=== PATIENT | male | born 1965 | race Caucasian/White ===

== ENCOUNTER 2017-04-15 17:29 | Observation (INO) ==
--- NOTE | 2017-04-15 17:40 | Emergency Department Note ---
Disposition Clinical Impression: Benzodiazepine intoxication Altered mental status Qualifiers: Altered mental status type: disorientation Qualified Code(s): R41.0 - Disorientation, unspecified Disposition: Admitted As Inpatient Condition: Fair Time of Disposition: 21:15 Altered Mental Status HPI - General Chief Complaint: ED Altered Mental Status Stated Complaint: AMS Time Seen by Provider: 04/15/17 17:36 - History of Present Illness HPI Narrative: Patient is a 51-year-old male presents with altered mental status. Patient was found on the side of the road and someone called EMS. Patient was wake at the time EMS was called. Patient a poor historian and has slurred speech at this time. He is unable to answer questions appropriately. Patient's ckbhy-ai-axqe glucose was 99 prior to arrival to the ED. - Related Data Home Medications Medication Instructions Recorded Confirmed Diclofenac Sodium [Voltaren] 75 mg PO BID 04/15/17 Fluticasone/Vilanterol [Breo 1 each IH DAILY 04/15/17 Ellipta 100-25 Mcg INH] Previous Rx's Medication Instructions Recorded Amitriptyline [Elavil] 100 mg PO HS #14 tablet 04/07/16 Albuterol Sulfate [Albuterol 2 puff IH Q4HR PRN #1 hfa.aer.ad 05/16/16 Inhaler] Tiotropium [Spiriva] 18 mcg IH 0700 #30 capsule 05/16/16 Allergies Allergy/AdvReac Type Severity Reaction Status Date / Time No Known Allergies Allergy Verified 03/06/16 11:22 Limitations: ROS unobtainable due to patients medical condition Past Medical History - Past Medical History Medical history: Reports: COPD, other Surgical history: Reports: vascular surgery, other Psychiatric history: Reports: anxiety, PTSD - Social History Smoking Status: Current some day smoker Smokeless Tobacco Status: No Alcohol use: Reports: none Drug use: Reports: none Physical Exam - General Limitations: other (Slurred speech. Unable to decipher in patient's words.) General appearance: appears intoxicated, lethargic, cachectic - Head Head exam: other (Scars to left side of face with evidence of facial reconstruction.) - Eye Eye exam: Present: PERRL, EOMI - Neck Neck exam: Present: normal inspection, full ROM - Chest Chest inspection: Present: normal inspection, symmetric chest wall rise - Respiratory Respiratory exam: Present: wheezes (Expiratory wheezing to all lung sanchez) - Cardiovascular Cardiovascular exam: Present: regular rate, normal rhythm, other (Cannot appreciate heart sounds over loud wheezing) - Extremities Exam Extremities exam: Present: normal inspection, full ROM - Expanded Neurological Exam Patient oriented to: Present: person, place. Absent: time Cranial nerves: EOM function (II, III, IV, ): Normal, facial sensation (V): Normal, facial palsy (VII): Normal, gag reflex (IX): Normal, spinal accessory function (XI): Normal, tongue deviation (XII): Normal Motor strength - LUE: 5/5 Motor strength - RUE: 5/5 Motor strength - LLE: 5/5 Motor strength - RLE: 5/5 Sensory exam upper extremity: light touch: Normal Sensory exam lower extremity: light touch: Normal Coma Scale Eye Opening: Spontaneous Coma Scale Motor Response: Obeys Commands Coma Scale Verbal Response: Confused Coma Scale Total: 14 - Psychiatric Psychiatric exam: Present: other (Altered consciousness) - Skin Skin exam: Present: warm, dry, intact Course - Reevaluation(s) Reevaluation #1: Labs this patient has ingested amphetamines, benzodiazepines, marijuana. His opiate screen is negative. Patient appears to have drug intoxication. He is more alert at this time. Ever, he is unsafe to be discharged home. We will proceed with admission for this patient. Time: 20:00 Reevaluation #2: Spoken to the hospitalist Dr. Bonilla and he agrees to accept this patient. Time: 21:15 Vital Signs Temperature 98 F 04/15/17 17:32 Pulse Rate 87 04/15/17 17:32 Respiratory Rate 20 04/15/17 17:32 Blood Pressure 93/57 04/15/17 17:32 O2 Sat by Pulse Oximetry 96 04/15/17 17:32 Temperature 98 F 04/15/17 17:32 Pulse Rate 76 04/15/17 21:30 Respiratory Rate 18 04/15/17 21:30 Blood Pressure 110/72 04/15/17 21:30 O2 Sat by Pulse Oximetry 95 04/15/17 21:30 Oxygen Delivery Oxygen Delivery Room Air Altered Mental Status - MDM Narrative Medical decision making narrative: Patient presents with altered mental status. Per EMS, the patient was found on the roadside and was awake at the time EMS arrived. Patient has slurred speech that is nearly incomprehensible. EMS states that the patient had a phone number of unknown drug dealer in his wallet. There is cancer for drug intoxication. However, we will proceed with workup for other causes of altered mental status. - Lab Data Result diagrams: 04/15/17 20:09 04/15/17 20:09 Lab Results 04/15/17 04/15/17 04/15/17 Range/Units 18:28 18:28 20:09 WBC 6.4 (4.3-11.1) K/mcL RBC 5.23 (4.19-5.50) M/mcL Hgb 15.0 (12.9-16.9) g/dL Hct 45.9 (37.5-50.1) % MCV 87.8 (83.0-100.0) fL MCH 28.7 (28.0-33.3) pg MCHC 32.7 (31.6-35.5) g/dL RDW 14.6 H (11.5-14.5) % Plt Count 242 (140-400) K/mcL MPV 10.9 (9.4-12.4) fL Immature Gran % 0.0 (0-4) % Seg Neutrophils % 49.7 % Lymphocytes % 39.2 % Monocytes % 7.8 % Eosinophils % 1.7 % Basophils % 1.6 % Neutrophils # 3.2 (1.6-8.9) K/mcL Lymphocytes # 2.5 (0.6-4.6) K/mcL Monocytes # 0.5 (0.0-1.3) K/mcL Eosinophils # 0.1 (0.0-0.6) K/mcL Basophils # 0.1 (0.0-0.2) K/mcL Sodium (136-145) mEq/L Potassium (3.5-4.5) mEq/L Chloride (98-109) mEq/L Carbon Dioxide (19-29) mEq/L BUN (8-26) mg/dL Creatinine (0.72-1.25) mg/dL Est GFR ( Amer) (> 60) Est GFR (Non-Af Amer) (> 60) BUN/Creatinine Ratio (6-26) Glucose (70-99) mg/dL Calculated Osmolality (280-300) Calcium (8.6-10.8) mg/dL Total Bilirubin (0.2-1.2) mg/dL Direct Bilirubin (0.0-0.5) mg/dL Indirect Bilirubin (0.0-1.2) mg/dL AST (5-34) Units/L ALT (0-55) Units/L Alkaline Phosphatase (38-126) Units/L Serum Total Protein (6.0-8.3) g/dL Albumin (3.5-5.0) g/dL Globulin (2.4-3.5) g/dL Albumin/Globulin Ratio (1.1-2.2) Urine Color Yellow (Yellow) Urine Clarity Clear (Clear) Urine pH 7.0 (5.0-8.0) pH Units Ur Specific [place] 1.014 (1.010-1.025) Urine Protein Negative (Neg-Trace) mg/dL Urine Glucose (UA) Normal (Normal) mg/dL Urine Ketones Negative (Negative) mg/dL Urine Blood Negative (Negative) Urine Nitrite Negative (Negative) Urine Bilirubin Negative (Negative) Urine Urobilinogen Normal (Normal) mg/dL Ur Leukocyte Esterase Negative (Negative) Ur Culture Indicated? NO (NO) Salicylates (15-30) mg/dL Urine Opiates Screen Negative (Fsvmkq=785) ng/mL Acetaminophen (10-30) mcg/mL Ur Barbiturates Screen Negative (Uqyzwz=458) ng/mL Ur Phencyclidine Scrn Negative (Cutoff=25) ng/mL Ur Amphetamines Screen Positive H (Iwwluw=5392) ng/mL U Benzodiazepines Scrn Positive H (Ybebhh=950) ng/mL Urine Cocaine Screen Negative (Cutoff= 300) ng/mL U Marijuana (THC) Screen Positive H (Cutoff = 50) ng/mL Ethyl Alcohol (0-10) mg/dL 04/15/17 04/15/17 Range/Units 20:09 20:09 WBC (4.3-11.1) K/mcL RBC (4.19-5.50) M/mcL Hgb (12.9-16.9) g/dL Hct (37.5-50.1) % MCV (83.0-100.0) fL MCH (28.0-33.3) pg MCHC (31.6-35.5) g/dL RDW (11.5-14.5) % Plt Count (140-400) K/mcL MPV (9.4-12.4) fL Immature Gran % (0-4) % Seg Neutrophils % % Lymphocytes % % Monocytes % % Eosinophils % % Basophils % % Neutrophils # (1.6-8.9) K/mcL Lymphocytes # (0.6-4.6) K/mcL Monocytes # (0.0-1.3) K/mcL Eosinophils # (0.0-0.6) K/mcL Basophils # (0.0-0.2) K/mcL Sodium 142 (136-145) mEq/L Potassium 4.1 (3.5-4.5) mEq/L Chloride 109 (98-109) mEq/L Carbon Dioxide 25 (19-29) mEq/L BUN 8 (8-26) mg/dL Creatinine 0.83 (0.72-1.25) mg/dL Est GFR ( Amer) > 60 (> 60) Est GFR (Non-Af Amer) > 60 (> 60) BUN/Creatinine Ratio 10 (6-26) Glucose 81 (70-99) mg/dL Calculated Osmolality 291 (280-300) Calcium 9.7 (8.6-10.8) mg/dL Total Bilirubin 0.8 (0.2-1.2) mg/dL Direct Bilirubin 0.3 (0.0-0.5) mg/dL Indirect Bilirubin 0.5 (0.0-1.2) mg/dL AST 34 (5-34) Units/L ALT 28 (0-55) Units/L Alkaline Phosphatase 80 (38-126) Units/L Serum Total Protein 7.6 (6.0-8.3) g/dL Albumin 3.5 (3.5-5.0) g/dL Globulin 4.1 H (2.4-3.5) g/dL Albumin/Globulin Ratio 0.9 L (1.1-2.2) Urine Color (Yellow) Urine Clarity (Clear) Urine pH (5.0-8.0) pH Units Ur Specific [place] (1.010-1.025) Urine Protein (Neg-Trace) mg/dL Urine Glucose (UA) (Normal) mg/dL Urine Ketones (Negative) mg/dL Urine Blood (Negative) Urine Nitrite (Negative) Urine Bilirubin (Negative) Urine Urobilinogen (Normal) mg/dL Ur Leukocyte Esterase (Negative) Ur Culture Indicated? (NO) Salicylates < 5.0 L (15-30) mg/dL Urine Opiates Screen (Wxicff=137) ng/mL Acetaminophen < 1.0 L (10-30) mcg/mL Ur Barbiturates Screen (Mnpizr=214) ng/mL Ur Phencyclidine Scrn (Cutoff=25) ng/mL Ur Amphetamines Screen (Peepfa=7330) ng/mL U Benzodiazepines Scrn (Uyyhhq=253) ng/mL Urine Cocaine Screen (Cutoff= 300) ng/mL U Marijuana (THC) Screen (Cutoff = 50) ng/mL Ethyl Alcohol < 10 (0-10) mg/dL TPA Checklist - LKW: 3-4.5 hrs Add. Contraindications Patient/family understanding: The patient/family members have been counseled and understood the risk, benefit , and alternatives of treatment.
[2017-04-15] MEDS ORDERED: 0.9 % Sodium Chloride 1,000 ML IVC ONE ×2 (17:44→23:25)
--- NOTE | 2017-04-15 17:44 | Emergency Department Note ---
START Narrative - START START: I examined this patient and my medical decision-making was reviewed with the FISHING MANAGER/PA/Advanced Practice Nurse/Resident Physician. I agree with the documented findings, disposition and treatment plan as described except to the extent set forth below. Patient was found by the road confused and brought here by EMS and he is mumbling and give some answers and denies any drug use. He reportedly did have a phone number found in his wallet which was a number of a known drug dealer. The patient has been seen in the past that did review previous records. Testing including CT brain is pending. He denies any trauma. Does have some minimal neck pain with palpation. Unable to give an adequate history secondary to his altered consciousness. 1744 I did review the patient's EKG showed normal sinus rhythm with rate of 77 without acute ischemic change. There is no evidence of prolonged QT segment or any QRS widening. The patient just did return from head CT and this will be evaluated. 1818 I did discuss the the patient again. He is more alert but still slightly groggy. He does give me his name and the name of the person he lives with and he does know the year. We will observe her longer. He does now admit to smoking marijuana and taking 2 Klonopin. I did review the drug toxicology screen we did find a empty syringe underneath his scrotum when the [place] catheter was done to obtain the urine however his opiate screen is negative and he denies current use of opiates however has used heroin in the past 1957
[2017-04-15] MEDS ORDERED: Naloxone 0.4 MG/ML INJ IVP ONE (18:27)
[2017-04-15 18:40] LABS: Bilirubin,Urine Negative (Negative); Blood,Urine Negative (Negative); Clarity,Urine Clear (Clear); Color,Urine Yellow (Yellow); Glucose,Urine (UA) Normal (Normal); Ketones,Urine Negative (Negative); Leukocyte Esterase,Urine Negative (Negative); Nitrite,Urine Negative (Negative); Protein,Urine Negative (Neg-Trace); Specific Gravity,Urine 1.014 (1.010-1.025); Urobilinogen,Urine Normal (Normal)
[2017-04-15 18:45] LABS: Amphetamine Screen,Urine Positive ng/mL (Cutoff=1000); Barbiturate Screen,Urine Negative ng/mL (Cutoff=200); Benzodiazepines Screen,Urine Positive ng/mL (Cutoff=200); Cannabinoid Screen,Urine Positive ng/mL (Cutoff = 50); Cocaine Screen,Urine Negative ng/mL (Cutoff= 300); Opiate Screen,Urine Negative ng/mL (Cutoff=300); Phencyclidine Screen,Urine Negative ng/mL (Cutoff=25)
[2017-04-15 20:16] LABS: Basophils # 0.1 K/mcL (0.0-0.2); Basophils % 1.6 %; Eosinophils # 0.1 K/mcL (0.0-0.6); Eosinophils % 1.7 %; Hematocrit 45.9 % (37.5-50.1); Lymphocytes # 2.5 K/mcL (0.6-4.6); Lymphocytes % 39.2 %; Mean Corpuscular HGB Conc 32.7 g/dL (31.6-35.5); Mean Corpuscular Hemoglobin 28.7 pg (28.0-33.3); Mean Corpuscular Volume 87.8 fL (83.0-100.0); Mean Platelet Volume 10.9 fL (9.4-12.4); Monocytes # 0.5 K/mcL (0.0-1.3); Monocytes % 7.8 %; Neutrophils # 3.2 K/mcL (1.6-8.9); Platelet Count 242 K/mcL (140-400); Red Blood Count 5.23 M/mcL (4.19-5.50); Red Cell Distribution Width 14.6 % (11.5-14.5); Segmented Neutrophils % 49.7 %
[2017-04-15 20:29] LABS: Alanine Aminotransferase 28 Units/L (0-55); Albumin 3.5 g/dL (3.5-5.0); Albumin/Globulin Ratio 0.9 (1.1-2.2); Alkaline Phosphatase 80 Units/L (38-126); Aspartate Amino Transferase 34 Units/L (5-34); BUN/Creatinine Ratio 10 (6-26); Bilirubin,Direct 0.3 mg/dL (0.0-0.5); Bilirubin,Indirect 0.5 mg/dL (0.0-1.2); Bilirubin,Total 0.8 mg/dL (0.2-1.2); Blood Urea Nitrogen 8 mg/dL (8-26); Calcium 9.7 mg/dL (8.6-10.8); Carbon Dioxide 25 mEq/L (19-29); Chloride 109 mEq/L (98-109); Globulin 4.1 g/dL (2.4-3.5); Glucose 81 mg/dL (70-99); Osmolality,Calculated 291 (280-300); Potassium 4.1 mEq/L (3.5-4.5); Sodium 142 mEq/L (136-145); Total Protein 7.6 g/dL (6.0-8.3); eGFR For African Americans > 60 (> 60); eGFR For Non-African Americans > 60 (> 60)
[2017-04-15 20:30] LABS: Acetaminophen < 1.0 mcg/mL (10-30); Ethanol < 10 mg/dL (0-10); Salicylate < 5.0 mg/dL (15-30)
--- NOTE | 2017-04-16 00:09 | Internal Med History&Physical ---
Date of Encounter: 04/16/17 Time of Encounter: 00:21 Assessment and Plan (1) Altered mental status Current visit: Yes Status: Acute Due to drug intoxication. Urine drug screen is positive for benzodiazepine amphetamines. Because patient was initially found unresponsive am going to ask for a psychiatry evaluation. EKG shows a QRS duration less than 100 ms. Normal QTC interval. He will be monitored continuously on telemetry. Hydration Qualifiers: Altered mental status type: disorientation Qualified Code(s): R41.0 - Disorientation, unspecified (2) COPD (chronic obstructive pulmonary disease) Current visit: Yes Status: Acute I reviewed the patient [id number] nebulizer treatment. He is not on oxygen home nor requiring oxygen in hospital. Qualifiers: Qualified Code(s): J44.9 - Chronic obstructive pulmonary disease, unspecified Internal Medicine - H&P: HPI Chief complaint: unresponsive History of present illness: Mr. Crawford is a 51 year old male with a history of COPD presented to the emergency room after he was found unresponsive by a bystander industry. Paramedics were called and reportedly patient was arousal of the time arrival of paramedics. Urine drug screen was positive for amphetamines benzodiazepines. Patients to very sleepy unable to provide a clear history. ER staff found an empty needle with the patient. Patient still sleepy for several hours in the emergency room so is being admitted for observation. Patient denies that this was a part of a suicide attempt. He thinks he just took extra doses of drugs. Past Med Surg Social Fam HX - Past Medical History Medical history: COPD, other Psychiatric history: anxiety, PTSD - Past Surgical History Surgical History: vascular surgery, other - Social History Smoking Status: Current some day smoker Smokeless Tobacco Status: No Alcohol use: none Drug use: marijuana, methamphetamine, IVDU Internal Medicine - H&P: Meds Amitriptyline [Elavil] 100 mg PO HS #14 tablet 04/07/16 [Rx] Albuterol Sulfate [Albuterol Inhaler] 2 puff IH Q4HR PRN #1 hfa.aer.ad 05/16/16 [Rx] Tiotropium [Spiriva] 18 mcg IH 0700 #30 capsule 05/16/16 [Rx] Diclofenac Sodium [Voltaren] 75 mg PO BID 04/15/17 [History] Fluticasone/Vilanterol [Breo Ellipta 100-25 Mcg INH] 1 each IH DAILY 04/15/17 [ History] Allergies No Known Allergies Allergy (Verified 03/06/16 11:22) All Systems PM: A 10-system review of systems was performed and is negative for pertinent findings except as documented above in the HPI. Review of systems: 10 point review systems is negative except for HPI. - Constitutional Vitals: Temp Pulse Resp BP Pulse Ox 98.0 F 90 26 97/66 96 04/15/17 22:25 04/15/17 22:25 04/15/17 22:25 04/15/17 22:25 04/15/17 22:25 Exam: Gen.: patient is lethargic oriented times 3 not in distress. Cardiac: normal S1 S2 no additional sounds or murmurs chest: Diminished air entry. expiratory wheeze. No crackles or bronchial breathing. abdomen: soft nontender nondistended normal bowel sounds neuro: no focal deficit Internal Med - H&P Results - Labs CBC & Chem 7: 04/15/17 20:09 04/15/17 20:09
[2017-04-16] MEDS: Ipratropium/Albuterol Neb 3 ML IH SCH ×3 (03:54→15:42)
[2017-04-16] MEDS ORDERED: *HR* Morphine 2 MG/ML SYRINGE IVP ONE (03:54)
[2017-04-16 05:53] LABS: Basophils # 0.1 K/mcL (0.0-0.2); Basophils % 1.4 %; Eosinophils # 0.1 K/mcL (0.0-0.6); Eosinophils % 1.6 %; Hematocrit 38.8 % (37.5-50.1); Immature Granulocytes % 0.2 % (0-4); Lymphocytes # 2.1 K/mcL (0.6-4.6); Mean Corpuscular HGB Conc 32.7 g/dL (31.6-35.5); Mean Corpuscular Volume 88.6 fL (83.0-100.0); Mean Platelet Volume 11.1 fL (9.4-12.4); Monocytes # 0.6 K/mcL (0.0-1.3); Monocytes % 9.8 %; Neutrophils # 3.4 K/mcL (1.6-8.9); Platelet Count 233 K/mcL (140-400); Red Blood Count 4.38 M/mcL (4.19-5.50); Red Cell Distribution Width 14.6 % (11.5-14.5)
[2017-04-16] MEDS ORDERED: Ondansetron 4 MG/2 ML VIAL IVP PRN (05:54)
[2017-04-16 05:56] LABS: Hemoglobin 12.7 g/dL (12.9-16.9)
[2017-04-16] MEDS ORDERED: Ondansetron 4 MG/2 ML VIAL IVP SCH (06:00)
[2017-04-16 06:05] LABS: BUN/Creatinine Ratio 16 (6-26); Blood Urea Nitrogen 13 mg/dL (8-26); Calcium 8.6 mg/dL (8.6-10.8); Carbon Dioxide 24 mEq/L (19-29); Chloride 111 mEq/L (98-109); Glucose 108 mg/dL (70-99); Magnesium 1.3 mg/dL (1.6-2.6); Osmolality,Calculated 297 (280-300); Potassium 4.1 mEq/L (3.5-4.5); Sodium 143 mEq/L (136-145); eGFR For African Americans > 60 (> 60); eGFR For Non-African Americans > 60 (> 60)
[2017-04-16] MEDS ORDERED: *HR* LORazepam 2 MG/ML VIAL ONE (06:11)
[2017-04-16] MEDS ORDERED: *HR* LORazepam 2 MG/ML VIAL IVP ONE (06:12)
[2017-04-16] MEDS ORDERED: Famotidine 20 MG/2 ML VIAL IVP SCH (09:00)
[2017-04-16] MEDS ORDERED: Magnesium Oxide 400 MG TABLET PO SCH (09:00)
[2017-04-16] MEDS ORDERED: 0.9 % Sodium Chloride 1,000 ML ONE (09:30)
[2017-04-16] MEDS ORDERED: 0.9 % Sodium Chloride 1,000 ML IVC SCH (09:45)
--- NOTE | 2017-04-16 14:05 | Consult Note ---
Date of Encounter: 04/16/17 Time of Encounter: 13:30 Assessment & Recommendation (1) Altered mental status Current visit: Yes Status: Acute Assessment & Recommendation: 1. Continue symptomatic management and stabilization of his delirious condition 2. At this time there is no acute psychiatric condition that will require inpatient hospitalization. 3. Obtaining more information and history of psychiatric treatment will be helpful to review and provided appropriate recommendation. Thank you for consultation Qualifiers: Altered mental status type: disorientation Qualified Code(s): R41.0 - Disorientation, unspecified History of Present Illness Patient: new to practice Requesting Physician: Lidia Cook CNP Reason for consult: Drug overdose History of present illness: Mr. Crawford is a 51 year old male admitted to the hospital for evaluation treatment off Altered mental status and unresponsiveness. UDS positive for amphetamine, THC and benzodiazepine. Psychiatric consultation was requested regarding overdose. Review of the chart did not reveal any history of psychiatric treatment. On interview patient was lethargic and unable to answer questions or participate in evaluation. He was lying comfortably in bed. CC: Lidia Cook CNP Past Med Surg Social Fam HX - Past Medical History Medical history: COPD, other - Past Surgical History Surgical History: vascular surgery, other - Social History Smoking Status: Current some day smoker Smokeless Tobacco Status: No Alcohol use: none Drug use: marijuana, methamphetamine, IVDU Medications & Allergies Amitriptyline [Elavil] 100 mg PO HS #14 tablet 04/07/16 [Rx] Albuterol Sulfate [Albuterol Inhaler] 2 puff IH Q4HR PRN #1 hfa.aer.ad 05/16/16 [Rx] Tiotropium [Spiriva] 18 mcg IH 0700 #30 capsule 05/16/16 [Rx] Diclofenac Sodium [Voltaren] 75 mg PO BID 04/15/17 [History] Fluticasone/Vilanterol [Breo Ellipta 100-25 Mcg INH] 1 each IH DAILY 04/15/17 [ History] Allergies No Known Allergies Allergy (Verified 03/06/16 11:22) Results - Vital Signs Vital signs: Temp Pulse Resp BP Pulse Ox 97.6 F 77 18 145/76 97 04/16/17 10:11 04/16/17 12:27 04/16/17 10:34 04/16/17 12:27 04/16/17 12:27 - Labs Labs: Laboratory Last Values WBC 6.2 K/mcL (4.3-11.1) 04/16/17 05:39 RBC 4.38 M/mcL (4.19-5.50) 04/16/17 05:39 Hgb 12.7 g/dL (12.9-16.9) L D 04/16/17 05:39 Hct 38.8 % (37.5-50.1) 04/16/17 05:39 MCV 88.6 fL (83.0-100.0) 04/16/17 05:39 MCH 29.0 pg (28.0-33.3) 04/16/17 05:39 MCHC 32.7 g/dL (31.6-35.5) 04/16/17 05:39 RDW 14.6 % (11.5-14.5) H 04/16/17 05:39 Plt Count 233 K/mcL (140-400) 04/16/17 05:39 MPV 11.1 fL (9.4-12.4) 04/16/17 05:39 Immature Gran % 0.2 % (0-4) 04/16/17 05:39 Seg Neutrophils % 54.0 % 04/16/17 05:39 Lymphocytes % 33.0 % 04/16/17 05:39 Monocytes % 9.8 % 04/16/17 05:39 Eosinophils % 1.6 % 04/16/17 05:39 Basophils % 1.4 % 04/16/17 05:39 Neutrophils # 3.4 K/mcL (1.6-8.9) 04/16/17 05:39 Lymphocytes # 2.1 K/mcL (0.6-4.6) 04/16/17 05:39 Monocytes # 0.6 K/mcL (0.0-1.3) 04/16/17 05:39 Eosinophils # 0.1 K/mcL (0.0-0.6) 04/16/17 05:39 Basophils # 0.1 K/mcL (0.0-0.2) 04/16/17 05:39 Sodium 143 mEq/L (136-145) 04/16/17 05:39 Potassium 4.1 mEq/L (3.5-4.5) 04/16/17 05:39 Chloride 111 mEq/L (98-109) H 04/16/17 05:39 Carbon Dioxide 24 mEq/L (19-29) 04/16/17 05:39 BUN 13 mg/dL (8-26) 04/16/17 05:39 Creatinine 0.79 mg/dL (0.72-1.25) 04/16/17 05:39 Est GFR ( Amer) > 60 (> 60) 04/16/17 05:39 Est GFR (Non-Af Amer) > 60 (> 60) 04/16/17 05:39 BUN/Creatinine Ratio 16 (6-26) 04/16/17 05:39 Glucose 108 mg/dL (70-99) H 04/16/17 05:39 Calculated Osmolality 297 (280-300) 04/16/17 05:39 Calcium 8.6 mg/dL (8.6-10.8) 04/16/17 05:39 Magnesium 1.3 mg/dL (1.6-2.6) L 04/16/17 05:39 Total Bilirubin 0.8 mg/dL (0.2-1.2) 04/15/17 20:09 Direct Bilirubin 0.3 mg/dL (0.0-0.5) 04/15/17 20:09 Indirect Bilirubin 0.5 mg/dL (0.0-1.2) 04/15/17 20:09 AST 34 Units/L (5-34) 04/15/17 20:09 ALT 28 Units/L (0-55) 04/15/17 20:09 Alkaline Phosphatase 80 Units/L (38-126) 04/15/17 20:09 Serum Total Protein 7.6 g/dL (6.0-8.3) 04/15/17 20:09 Albumin 3.5 g/dL (3.5-5.0) 04/15/17 20:09 Globulin 4.1 g/dL (2.4-3.5) H 04/15/17 20:09 Albumin/Globulin Ratio 0.9 (1.1-2.2) L 04/15/17 20:09 Urine Color Yellow (Yellow) 04/15/17 18:28 Urine Clarity Clear (Clear) 04/15/17 18:28 Urine pH 7.0 pH Units (5.0-8.0) 04/15/17 18:28 Ur Specific [place] 1.014 (1.010-1.025) 04/15/17 18: Urine Protein Negative mg/dL (Neg-Trace) 04/15/17 18: Urine Glucose (UA) Normal mg/dL (Normal) 04/15/17 18: Urine Ketones Negative mg/dL (Negative) 04/15/17 18: Urine Blood Negative (Negative) 04/15/17 18: Urine Nitrite Negative (Negative) 04/15/17 18: Urine Bilirubin Negative (Negative) 04/15/17 18: Urine Urobilinogen Normal mg/dL (Normal) 04/15/17 18: Ur Leukocyte Esterase Negative (Negative) 04/15/17 18: Ur Culture Indicated? NO (NO) 04/15/17 18: Salicylates < 5.0 mg/dL (15-30) L 04/15/17 20:09 Urine Opiates Screen Negative ng/mL (Brsuct=577) 04/15/17 18: Acetaminophen < 1.0 mcg/mL (10-30) L 04/15/17 20:09 Ur Barbiturates Screen Negative ng/mL (Rfzwhp=152) 04/15/17 18:28 Ur Phencyclidine Scrn Negative ng/mL (Cutoff=25) 04/15/17 18:28 Ur Amphetamines Screen Positive ng/mL (Octskh=4822) H 04/15/17 18:28 U Benzodiazepines Scrn Positive ng/mL (Mkbkkv=792) H 04/15/17 18:28 Urine Cocaine Screen Negative ng/mL (Cutoff= 300) 04/15/17 18:28 U Marijuana (THC) Screen Positive ng/mL (Cutoff = 50) H 04/15/17 18:28 Ethyl Alcohol < 10 mg/dL (0-10) 04/15/17 20:09 Consult Discharge Plan - Plan
[2017-04-16 15:23] VITALS: BP 126/79
[2017-04-16] MEDS ORDERED: Naloxone 0.4 MG/ML INJ IM ONE (15:51)
--- NOTE | 2017-04-16 16:05 | Discharge Summary ---
Date of Encounter: 04/16/17 Time of Encounter: 09:10 - Discharge Diagnosis (1) Altered mental status Priority: Primary Status: Acute Comments: Pt was found unresponsive last night. Patient has no recollection of who he was talking to her where he was on this happened. He remembers waking up in the emergency department. His story has varied multiple times today. Initially he denied ever using heroin, in the same conversation he says he only does heroin every 3-4 days, this afternoon he tells me that he does "a 20 ball every day". He tells me that he remembers talking to someone and does not know what happened and then awakened in the emergency department. Per the emergency department staff, there was a syringe under his scrotum. Patient says he has no idea how that got there. When I initially saw him this morning, patient was extremely drowsy, slurred speech, and could not keep his eyes open. This afternoon he is completely alert awake and oriented and is on the phone, cursing loudly at someone. Qualifiers: Altered mental status type: disorientation Qualified Code(s): R41.0 - Disorientation, unspecified (2) Benzodiazepine intoxication Priority: Secondary Status: Acute Comments: Urine tox screen positive for benzodiazepines. He is not prescribed any benzodiazepines. (3) Tobacco abuse Priority: Secondary Status: Chronic Comments: Patient says he smokes varying amounts of cigarettes, usually between 1/2-1 pack per day. He is not interested in smoking cessation at this time. (4) Chronic pain Priority: Secondary Status: Chronic Comments: Patient tells me multiple times during both interactions I have with him today that he has chronic pain due to 3 neck fractures and that he has been med flighted 4 times. We did speak briefly about going to pain management. He said he will not go and that he used to go to pain management however they kicked him out. He does admit that that was his fault. He said it is easier to go on the street and find medication than it is to get it from physicians. Patient is not prescribed any pain medications at home. He did ask me multiple times for narcotic pain medications, specifically Dilaudid and morphine. I told him due to his drowsiness that I would not be able to give him any narcotic pain medication and that I would be more than happy to give him a tramadol, Tylenol, or Motrin. He declined and said he would rather have nothing. Qualifiers: Chronic pain type: chronic pain syndrome Qualified Code(s): G89.4 - Chronic pain syndrome (5) Hypertension Priority: Secondary Status: Chronic Comments: Chronic. Patient did require some when necessary pain medication. His blood pressure has been very labile since he has been here. He has had episodes of hypotension and hypertension. On discharge he is normotensive. Qualifiers: Hypertension type: essential hypertension Qualified Code(s): I10 - Essential (primary) hypertension (6) COPD (chronic obstructive pulmonary disease) Priority: Secondary Status: Acute Comments: Chronic P continue home medications. Posterior lungs are clear and diminished. There is no acute exacerbation. Qualifiers: COPD type: unspecified COPD Qualified Code(s): J44.9 - Chronic obstructive pulmonary disease, unspecified - Discharge Medications Home Medications: Amitriptyline [Elavil] 100 mg PO HS #14 tablet 04/07/16 [Rx] Albuterol Sulfate [Albuterol Inhaler] 2 puff IH Q4HR PRN #1 [id number].[email or web address].[id number] 05/16/16 [Rx] Tiotropium [Spiriva] 18 mcg IH 0700 #30 capsule 05/16/16 [Rx] Diclofenac Sodium [Voltaren] 75 mg PO BID 04/15/17 [History] Fluticasone/Vilanterol [Breo Ellipta 100-25 Mcg INH] 1 each IH DAILY 04/15/17 [ History] Allergies/Adverse Reactions: Allergies No Known Allergies Allergy (Verified 03/06/16 11:22) Date of admission: 04/15/17 21:43 Primary care physician: PCP NO Consults: 04/16/17 00:01 Consult to Psychiatry [CONS] Routine Consulting Provider: Psychiatry Kerri Reason for Consult: unresponsive due to drug overdose Call Completed: No Discharging clinician: Lidia Cook Anticipated date of discharge: 04/16/17 - Patient Status Disposition: Home, Self-Care Condition: Good Functional capacity at discharge: independent ambulation Overall status at discharge: patient is back to baseline - Discharge Instructions Follow Up With: NO,PCP [Primary Care Provider] - (Please call the physician referral line at [phone] to schedule an appointment within 5-7 days. ) Forms: ED Satisfaction Letter Additional Instructions: Please resume your normal home medications in the morning. Please try to follow up with your family doctor. Also please try to get a referral to pain management. Return to the emergency department for any new or concerning symptoms. - Diet and Activity Activity: increase activity as tolerated Diet: advance to your usual diet Interval History: She is a 51-year-old male with a history of COPD and chronic pain syndrome. He was found unresponsive by a bystander nearby. Paramedics were called and reportedly patient was arousable by the time they arrived. His urine drug screen was positive for amphetamines and benzodiazepines. Patient was very drowsy in the emergency department and was admitted for observation. ER staff found an empty syringe under his scrotum when they tried to put a Aldridge catheter in. I saw patient earlier this morning he was extremely drowsy with slurred speech. He fell asleep during the middle of sentences. He was very hard to assess. I saw patient again this afternoon to reassess his situation after giving him some IV hydralazine and IV fluids. When I entered the room this afternoon at approximately 1600, he was on the phone cursing loudly at someone. He is fully awake and speech is clear. He is alert and oriented. He is able to move about the room without difficulty with a steady gait. He says that he feels better. During both interactions with the patient he repeatedly told me about his neck fractures and how he was med flighted multiple times. Patient states that he used to be a patient at pain management, however they will not see him anymore. He states that it is his fault that he cannot be seen there anymore. He said it is easier to get drugs on the street than it is at the doctor's office. I did offer him Tylenol Motrin or tramadol for his pain and he declined. He did ask me for Dilaudid and morphine. I told him due to his drowsiness that I would not be able to give him any sedating medications at all 2-3 times during my visit he requested, "at least a nerve pill." Again I told him I would not be able to give him anything sedating. Per his home medication list he takes Voltaren 75 mg by mouth, which I will give him prior to discharge. Patient was upset after I left the room and per primary nurse he ripped out his IV and ripped off all of his monitor leads. Labs are stable, vital signs are stable. Blood pressure has been labile today. Patient has been drowsy and he has also been up moving about. He was given some IV pain medication that did make him normotensive at discharge. Patient was seen by psychiatry and they determined there is no acute psychiatric condition that required inpatient hospitalization. Patient denies any suicidal ideations or homicidal ideations during my second visit this afternoon. His story has changed with me multiple times today when initially he said he did not use heroin, then he said he did it every few days, and during my final visit, he said that he does "a 20 ball a day." Patient is stable and appropriate for discharge. Hospital course: Mr. Crawford is a 51 year old male Time spent discussing smoking cessation with patient: 3 to 10 minutes - Time Spent with Patient Total time spent providing and/or coordinating discharge services: Less than 30 minutes - Constitutional Vitals: Temp Pulse Resp BP Pulse Ox 98.0 F 79 16 126/79 96 04/16/17 15:22 04/16/17 15:22 04/16/17 15:42 04/16/17 15:22 04/16/17 15:42 General appearance: Present: A&O X 3, no acute distress, answers questions appropriately. Absent: pleasant - Head Head exam: Present: normal inspection - Eye Eye exam: Present: EOMI, normal appearance, conjuntiva pink. Absent: nystagmus - ENT ENT exam: Present: mucous membranes moist, normal exam - Neck Neck exam general surgery: Present: normal inspection. Absent: lymphadenopathy , tenderness - Respiratory Respiratory exam: Present: CTAB. Absent: rales, rhonchi, stridor, wheezes - Cardiovascular Cardiovascular exam: Present: RRR, +S1, +S2. Absent: clicks, diastolic murmur, gallop, systolic murmur - GI/Abdominal GI/Abdominal exam: Present: normal bowel sounds, soft. Absent: hepatomegaly, tenderness - Extremities Exam Extremities exam: Present: normal capillary refill, warm, radial pulses palpable and symetrical. Absent: pedal edema
[2017-04-16] MEDS ORDERED: Diclofenac Sodium 75 MG TABLET PO ONE (16:25)
--- NOTE | 2017-04-16 16:36 | Electrocardiograph Report ---
[address] [address] Test Date: 2017-04-15 Pat Name: Saul Crawford Department: 102 Room: 3B Gender: M Pants Presser: Joleen : 1965 Requested By: Galileo Chung Order Number: [id number] Reading MD: Mary Grigsby Measurements Intervals [place] Rate: 77 P: 63 NM: 136 QRS: 75 QRSD: 90 T: 66 QT: 365 QTc: 397 Interpretive Statements SINUS RHYTHM Electronically Signed On 04-16-2017 16:34:54 EDT by Mary Grigsby
== END 2017-04-16 17:05 | disposition home or self-care (01) ==
LOC: EMEROO 17:29 → 3BNU 17:29
PROVIDERS: ADMIT Registered Nurse; ATTEND Registered Nurse

== ENCOUNTER 2019-12-18 11:48 | Inpatient (IN) ==
[~2019-12-18 11:48] MED LIST: *HR* Midazolam HCl 5 MG/5 ML VIAL IVP ONE; *HR* Rocuronium Bromide 50 MG/5 ML VIAL IVC ONE; *HR* Succinylcholine 200 MG/10 ML VIAL IVP ONE
[2019-12-18] MEDS ORDERED: Haloperidol Lactate 5 MG/ML VIAL IM ONE (12:13)
[2019-12-18] MEDS ORDERED: *HR* LORazepam 2 MG/ML VIAL IM ONE (12:13)
[2019-12-18 13:27] LABS: Basophils % 0.4 %; Eosinophils % 0.2 %; Hematocrit 37.3 % (37.5-50.1); Immature Granulocytes % 0.4 % (0-4); Lymphocytes # 1.2 K/mcL (0.6-4.6); Lymphocytes % 12.8 %; Mean Corpuscular HGB Conc 32.2 g/dL (31.6-35.5); Mean Corpuscular Hemoglobin 25.8 pg (28.0-33.3); Mean Corpuscular Volume 80.2 fL (83.0-100.0); Mean Platelet Volume 10.7 fL (9.4-12.4); Monocytes # 0.4 K/mcL (0.0-1.3); Monocytes % 4.7 %; Neutrophils # 7.4 K/mcL (1.6-8.9); Platelet Count 435 K/mcL (140-400); Red Blood Count 4.65 M/mcL (4.19-5.50); Red Cell Distribution Width 15.8 % (11.5-14.5); Segmented Neutrophils % 81.5 %; White Blood Count 9.1 K/mcL (4.3-11.1)
[2019-12-18 13:29] LABS: Bilirubin,Urine Negative (Negative); Blood,Urine Small (Negative); Clarity,Urine Cloudy (Clear); Color,Urine Yellow (Yellow); Glucose,Urine (UA) Normal (Normal); Ketones,Urine Negative (Negative); Leukocyte Esterase,Urine Large (Negative); Nitrite,Urine Positive (Negative); PH,Urine 7.5 pH Units (5.0-8.0); Protein,Urine Negative (Neg-Trace); Specific Gravity,Urine 1.013 (1.010-1.025); Urobilinogen,Urine Normal (Normal)
[2019-12-18 13:31] LABS: INR 1.1; Prothrombin Time 12.1 Seconds (9.4-12.1)
[2019-12-18 13:33] LABS: Bacteria,Urine Many per hpf (None-Few); Hyaline Casts,Urine None Seen per lpf (None-Few); RBC,Urine 0-3 per hpf (0-3); Squamous Epithelial Cell,Urine Moderate per lpf (None-Few); WBC,Urine TNTC per hpf (0-3)
[2019-12-18 13:38] LABS: Alanine Aminotransferase 11 Units/L (7-52); Albumin 2.6 g/dL (3.5-5.7); Albumin/Globulin Ratio 0.5 (1.1-2.2); Alkaline Phosphatase 106 Units/L (34-104); Aspartate Amino Transferase 24 Units/L (13-39); BUN/Creatinine Ratio 13 (6-26); Bilirubin,Direct 0.2 mg/dL (0.0-0.2); Bilirubin,Indirect 0.2 mg/dL (0.0-1.0); Bilirubin,Total 0.4 mg/dL (0.3-1.0); Blood Urea Nitrogen 13 mg/dL (6-20); Calcium 8.6 mg/dL (8.6-10.3); Carbon Dioxide 26 mEq/L (23-29); Chloride 107 mEq/L (98-107); Globulin 5.2 g/dL (2.4-3.5); Glucose 89 mg/dL (70-105); Magnesium 1.7 mg/dL (1.6-2.6); Osmolality,Calculated 294 (280-300); Phosphorous 3.2 mg/dL (2.7-4.5); Sodium 142 mEq/L (136-145); Total Protein 7.8 g/dL (6.4-8.9); eGFR For African Americans > 60 (> 60); eGFR For Non-African Americans > 60 (> 60)
[2019-12-18 13:39] LABS: Activated Partial Thrombo Time 16.6 Seconds (26.0-36.0); Troponin I < 0.03 ng/mL (< 0.04)
[2019-12-18] MEDS ORDERED: cefTRIAXone 2,000 MG in 0.9 % Sodium Chloride Mini Bag 100 ML IVPB ONE (13:49)
[2019-12-18] MEDS: 0.9 % Sodium Chloride 1,000 ML IVC ONE ×2 (13:51→15:24)
[2019-12-18] MEDS ORDERED: 0.9 % Sodium Chloride Mini Bag 100 ML ONE (14:21)
[2019-12-18] MEDS ORDERED: cefTRIAXone 2,000 MG in Water for inj. (sterile) 20 ML IVP ONE (14:23)
[2019-12-18] MEDS ORDERED: 0.9 % Sodium Chloride 1,000 ML IVC SCH (14:45)
[2019-12-18] MEDS ORDERED: Ipratropium/Albuterol Neb 3 ML ONE (17:07)
[2019-12-18 17:42] LABS: ABG Base Excess -3 mEq/L (-2 to 3); ABG HCO3 23 mEq/L (21-27); ABG PCO2 43 mmHg (35-45); ABG PH 7.34 pH Units (7.32-7.45); ABG PO2 < 17 mmHg (85-104); ABG TCO2 24 mEq/L (20-26); Blood Gas Modality AVAPS; Blood Gas VT 420 cc
[2019-12-18] MEDS ORDERED: *HR* Dextrose 50 % in Water (Syg) 50 ML SYRINGE ONE (17:47)
[2019-12-18] MEDS ORDERED: Isovue-370 500 ML BOTTLE IVP ONE (18:04)
[2019-12-18] MEDS ORDERED: *HR* Midazolam HCl 5 MG/5 ML VIAL IVP ONE ×2 (18:16→18:32)
[2019-12-18 18:45] LABS: Amphetamine Screen,Urine Negative ng/mL (Cutoff=1000); Barbiturate Screen,Urine Negative ng/mL (Cutoff=200); Benzodiazepines Screen,Urine Negative ng/mL (Cutoff=200); Cannabinoid Screen,Urine Negative ng/mL (Cutoff = 50); Cocaine Screen,Urine Negative ng/mL (Cutoff= 300); Opiate Screen,Urine Negative ng/mL (Cutoff=300); Phencyclidine Screen,Urine Negative ng/mL (Cutoff=25)
[2019-12-18] MEDS: FentaNYL (PF) 1,000 MCG in 0.9 % Sodium Chloride 80 ML IVC SCH (19:37)
[2019-12-18] MEDS ORDERED: Albuterol 2.5 MG/3 ML NEBULIZER IH PRN (19:42)
[2019-12-18] MEDS ORDERED: Naloxone 0.4 MG/ML INJ IVP PRN (19:42)
[2019-12-18] MEDS ORDERED: Artificial Tears SOLN 15 ML BOTTLE BOTH EYES PRN (19:42)
[2019-12-18] MEDS ORDERED: 0.9 % Sodium Chloride 1,000 ML IV ONE (19:52)
[2019-12-18] MEDS ORDERED: Vancomycin (wt based) 1,000 MG VIAL IVPB SCH (20:00)
[2019-12-18] MEDS ORDERED: *HR* Succinylcholine 200 MG/10 ML VIAL IVP ONE (20:06)
[2019-12-18 20:47] LABS: Alanine Aminotransferase 8 Units/L (7-52); Albumin 2.2 g/dL (3.5-5.7); Albumin/Globulin Ratio 0.5 (1.1-2.2); Alkaline Phosphatase 111 Units/L (34-104); Aspartate Amino Transferase 23 Units/L (13-39); BUN/Creatinine Ratio 13 (6-26); Bilirubin,Total 0.3 mg/dL (0.3-1.0); Blood Urea Nitrogen 13 mg/dL (6-20); Calcium 7.9 mg/dL (8.6-10.3); Carbon Dioxide 22 mEq/L (23-29); Chloride 115 mEq/L (98-107); Globulin 4.4 g/dL (2.4-3.5); Glucose 93 mg/dL (70-105); Osmolality,Calculated 300 (280-300); Potassium 3.1 mEq/L (3.5-5.1); Sodium 145 mEq/L (136-145); Total Protein 6.6 g/dL (6.4-8.9); eGFR For African Americans > 60 (> 60); eGFR For Non-African Americans > 60 (> 60)
[2019-12-18] MEDS ORDERED: Perflutren Lipid Microsphere 1.3 ML in 0.9 % Sodium Chloride 8.7 ML IVP ONE (20:58)
[2019-12-18 21:21] LABS: ABG Base Excess 0 mEq/L (-2 to 3); ABG HCO3 26 mEq/L (21-27); ABG Oxygen Saturation 100 % (95-98); ABG PCO2 52 mmHg (35-45); ABG PH 7.31 pH Units (7.32-7.45); ABG PO2 510 mmHg (85-104); ABG TCO2 28 mEq/L (20-26); Blood Gas VT 440 cc
[2019-12-18] MEDS ORDERED: 0.9 % Sodium Chloride 500 ML ONE (21:33)
[2019-12-18] MEDS: Artificial Tears SOLN 15 ML BOTTLE BOTH EYES SCH (21:37)
[2019-12-18] MEDS: Doxycycline 100 MG in 0.9 % Sodium Chloride Mini Bag 100 ML IVPB SCH (21:38)
[2019-12-18] MEDS: Chlorhexidine Rinse 15 ML MOUTHWASH MM SCH (21:38)
[2019-12-18] MEDS: Norepinephrine 4 MG in 0.9 % Sodium Chloride 250 ML IVC SCH (22:17)
[2019-12-18] MEDS: Ipratropium/Albuterol Neb 3 ML IH SCH (22:52)
[2019-12-19] MEDS: Artificial Tears SOLN 15 ML BOTTLE BOTH EYES SCH ×6 (00:42→20:27)
[2019-12-19] MEDS: methylPREDNISolone 125 MG/2 ML VIAL IVP SCH ×3 (00:46→16:38)
[2019-12-19] MEDS: FentaNYL (PF) 1,000 MCG in 0.9 % Sodium Chloride 80 ML IVC SCH ×2 (02:56→18:29)
[2019-12-19] MEDS: Ipratropium/Albuterol Neb 3 ML IH SCH ×4 (04:37→21:57)
[2019-12-19 04:41] LABS: Basophils # 0.1 K/mcL (0.0-0.2); Basophils % 0.3 %; Hemoglobin 12.9 g/dL (12.9-16.9); Immature Granulocytes % 0.7 % (0-4); Lymphocytes # 0.7 K/mcL (0.6-4.6); Mean Corpuscular HGB Conc 30.7 g/dL (31.6-35.5); Mean Corpuscular Hemoglobin 25.7 pg (28.0-33.3); Mean Corpuscular Volume 83.8 fL (83.0-100.0); Mean Platelet Volume 11.1 fL (9.4-12.4); Monocytes # 0.5 K/mcL (0.0-1.3); Monocytes % 2.2 %; Neutrophils # 22.5 K/mcL (1.6-8.9); Platelet Count 284 K/mcL (140-400); Red Blood Count 5.01 M/mcL (4.19-5.50); Red Cell Distribution Width 16.2 % (11.5-14.5); Segmented Neutrophils % 93.8 %
[2019-12-19 04:50] LABS: ABG Base Excess -2 mEq/L (-2 to 3); ABG HCO3 24 mEq/L (21-27); ABG Oxygen Saturation 98 % (95-98); ABG PCO2 47 mmHg (35-45); ABG PH 7.32 pH Units (7.32-7.45); ABG PO2 123 mmHg (85-104); ABG TCO2 26 mEq/L (20-26); Blood Gas Modality ASSIST CONTROL; Blood Gas VT 440 cc
[2019-12-19 05:17] LABS: Alanine Aminotransferase 7 Units/L (7-52); Albumin 2.3 g/dL (3.5-5.7); Albumin/Globulin Ratio 0.5 (1.1-2.2); Alkaline Phosphatase 108 Units/L (34-104); Aspartate Amino Transferase 35 Units/L (13-39); BUN/Creatinine Ratio 12 (6-26); Bilirubin,Direct 0.1 mg/dL (0.0-0.2); Bilirubin,Indirect 0.2 mg/dL (0.0-1.0); Bilirubin,Total 0.3 mg/dL (0.3-1.0); Blood Urea Nitrogen 15 mg/dL (6-20); Calcium 8.2 mg/dL (8.6-10.3); Carbon Dioxide 18 mEq/L (23-29); Chloride 116 mEq/L (98-107); Globulin 4.8 g/dL (2.4-3.5); Glucose 101 mg/dL (70-105); Magnesium 1.7 mg/dL (1.6-2.6); Osmolality,Calculated 295 (280-300); Phosphorous 4.5 mg/dL (2.7-4.5); Potassium 3.6 mEq/L (3.5-5.1); Sodium 142 mEq/L (136-145); Total Protein 7.1 g/dL (6.4-8.9); eGFR For African Americans > 60 (> 60); eGFR For Non-African Americans 59 (> 60)
[2019-12-19] MEDS: Pantoprazole 40 MG VIAL IVP SCH (06:55)
[2019-12-19] MEDS: *HR* Heparin 5,000 UNIT/ML VIAL SQ SCH ×2 (06:55→16:38)
[2019-12-19] MEDS: cefTRIAXone 2,000 MG in Water for inj. (sterile) 20 ML IVP SCH (06:55)
[2019-12-19] MEDS: Chlorhexidine Rinse 15 ML MOUTHWASH MM SCH ×2 (08:27→20:27)
[2019-12-19] MEDS: Doxycycline 100 MG in 0.9 % Sodium Chloride Mini Bag 100 ML IVPB SCH ×2 (08:27→20:27)
[2019-12-19] MEDS: Budesonide/Formoterol 160/4.5 1 PUFF INH IH SCH ×2 (09:34→21:57)
[2019-12-19 13:00] LABS: Adenovirus Not Detected (Not Detect); Coronavirus 229E Not Detected (Not Detect); Coronavirus HKU1 Not Detected (Not Detect)
[2019-12-19 13:01] LABS: Bordetella Pertussis Not Detected (Not Detect); Chlamydophila pneumoniae Not Detected (Not Detect); Coronavirus NL63 Not Detected (Not Detect); Coronavirus OC43 Not Detected (Not Detect); Human Metapneumovirus Not Detected (Not Detect); Human Rhinovirus/Enterovirus Not Detected (Not Detect); Influenza A Subtype 2009 H1 Not Detected (Not Detect); Influenza B Not Detected (Not Detect); Mycoplasma pneumoniae Not Detected (Not Detect); Parainfluenza Virus 1 Not Detected (Not Detect); Parainfluenza Virus 2 Not Detected (Not Detect); Parainfluenza Virus 3 Not Detected (Not Detect); Parainfluenza Virus 4 Not Detected (Not Detect); Respiratory Syncytial Virus Not Detected (Not Detect)
[2019-12-19 15:10] LABS: Folate 4.3 ng/mL (3.0-16.0)
[2019-12-19] MEDS: Norepinephrine 4 MG in 0.9 % Sodium Chloride 250 ML IVC SCH (16:40)
[2019-12-20] MEDS: Artificial Tears SOLN 15 ML BOTTLE BOTH EYES SCH ×7 (00:10→23:33)
[2019-12-20] MEDS: MethylPREDNISolone 40 MG/ML VIAL IVP SCH ×4 (00:10→23:33)
[2019-12-20 00:32] LABS: Acinetobacter baumannii by PCR Not Detected (Not Detect); Candida albicans by PCR Not Detected (Not Detect); Candida glabrata by PCR Not Detected (Not Detect); Candida krusei by PCR Not Detected (Not Detect); Candida parapsilosis by PCR Not Detected (Not Detect); Candida tropicalis by PCR Not Detected (Not Detect); Enterobacter cloacae Cmplx PCR Not Detected (Not Detect); Enterobacteriaceae by PCR Not Detected (Not Detect); Enterococcus by PCR Not Detected (Not Detect); Escherichia coli by PCR Not Detected (Not Detect); Klebsiella oxytoca by PCR Not Detected (Not Detect); Klebsiella pneumoniae by PCR Not Detected (Not Detect); Proteus by PCR Not Detected (Not Detect); Pseudomonas aeruginosa by PCR Not Detected (Not Detect); Serratia marcescens by PCR Not Detected (Not Detect); Staphylococcus aureus by PCR Not Detected (Not Detect); Staphylococcus by PCR DETECTED (Not Detect); Streptococcus agalactiae(B)PCR Not Detected (Not Detect); Streptococcus by PCR Not Detected (Not Detect); Streptococcus pneumoniae PCR Not Detected (Not Detect); Streptococcus pyogenes (A) PCR Not Detected (Not Detect); blaKPC Carbapenem-Resist Gene Not Detected (Not Detect); mecA Methicillin-Resist Gene Not Detected (Not Detect); vanA/B Vancomycin-Resist Genes Not Detected (Not Detect)
[2019-12-20] MEDS: FentaNYL (PF) 1,000 MCG in 0.9 % Sodium Chloride 80 ML IVC SCH ×3 (01:32→17:16)
[2019-12-20] MEDS: Ipratropium/Albuterol Neb 3 ML IH SCH ×4 (03:56→21:43)
[2019-12-20 05:10] LABS: Basophils % 0.1 %; Hematocrit 29.6 % (37.5-50.1); Immature Granulocytes % 0.4 % (0-4); Lymphocytes # 1.2 K/mcL (0.6-4.6); Lymphocytes % 6.8 %; Mean Corpuscular HGB Conc 31.1 g/dL (31.6-35.5); Mean Corpuscular Hemoglobin 25.8 pg (28.0-33.3); Mean Corpuscular Volume 82.9 fL (83.0-100.0); Mean Platelet Volume 11.1 fL (9.4-12.4); Monocytes # 0.4 K/mcL (0.0-1.3); Monocytes % 2.1 %; Neutrophils # 16.4 K/mcL (1.6-8.9); Platelet Count 329 K/mcL (140-400); Red Blood Count 3.57 M/mcL (4.19-5.50); Red Cell Distribution Width 16.3 % (11.5-14.5); Segmented Neutrophils % 90.6 %; White Blood Count 18.1 K/mcL (4.3-11.1)
[2019-12-20 05:14] LABS: Prothrombin Time 11.9 Seconds (9.4-12.1)
[2019-12-20 05:19] LABS: Activated Partial Thrombo Time 25.2 Seconds (26.0-36.0); Hemoglobin 9.2 g/dL (12.9-16.9)
[2019-12-20 05:20] LABS: ABG Base Excess -2 mEq/L (-2 to 3); ABG HCO3 24 mEq/L (21-27); ABG Oxygen Saturation 98 % (95-98); ABG PCO2 46 mmHg (35-45); ABG PH 7.33 pH Units (7.32-7.45); ABG PO2 110 mmHg (85-104); ABG TCO2 26 mEq/L (20-26); Blood Gas Modality AF; Blood Gas VT 480 cc
[2019-12-20 05:24] LABS: Albumin 2.3 g/dL (3.5-5.7); Albumin/Globulin Ratio 0.5 (1.1-2.2); Bilirubin,Direct 0.1 mg/dL (0.0-0.2); Bilirubin,Indirect 0.1 mg/dL (0.0-1.0); Bilirubin,Total 0.2 mg/dL (0.3-1.0); Calcium 8.2 mg/dL (8.6-10.3); Globulin 4.2 g/dL (2.4-3.5); Magnesium 1.9 mg/dL (1.6-2.6); Phosphorous 5.9 mg/dL (2.7-4.5); Potassium 3.7 mEq/L (3.5-5.1); Total Protein 6.5 g/dL (6.4-8.9)
[2019-12-20] MEDS: Pantoprazole 40 MG VIAL IVP SCH (05:54)
[2019-12-20] MEDS: cefTRIAXone 2,000 MG in Water for inj. (sterile) 20 ML IVP SCH (05:54)
[2019-12-20] MEDS: *HR* Heparin 5,000 UNIT/ML VIAL SQ SCH ×2 (05:55→17:16)
[2019-12-20] MEDS: Budesonide/Formoterol 160/4.5 1 PUFF INH IH SCH ×2 (07:19→21:43)
[2019-12-20] MEDS: Chlorhexidine Rinse 15 ML MOUTHWASH MM SCH ×2 (08:14→21:12)
[2019-12-20] MEDS: Doxycycline 100 MG in 0.9 % Sodium Chloride Mini Bag 100 ML IVPB SCH ×2 (08:14→21:32)
[2019-12-20] MEDS ORDERED: D5% in 0.45% NACL 1,000 ML IVC SCH (08:15)
[2019-12-20 13:25] LABS: Calcium 8.1 mg/dL (8.6-10.3); Potassium 3.3 mEq/L (3.5-5.1)
[2019-12-20] MEDS ORDERED: Potassium Chloride 40 MEQ, Lidocaine 1% 2 ML in 0.9 % Sodium Chloride 500 ML IVPB ONE (14:28)
[2019-12-20] MEDS: Norepinephrine 4 MG in 0.9 % Sodium Chloride 250 ML IVC SCH (15:24)
[2019-12-20] MEDS: Thiamine (B-1) 100 MG, Folic Acid 1 MG, MVI, adult with vitamin K 10 ML in 0.9 % Sodi... IVPB SCH (17:16)
[2019-12-21] MEDS: FentaNYL (PF) 1,000 MCG in 0.9 % Sodium Chloride 80 ML IVC SCH ×2 (01:54→05:49)
[2019-12-21] MEDS: Ipratropium/Albuterol Neb 3 ML IH SCH ×4 (03:33→22:00)
[2019-12-21] MEDS: Artificial Tears SOLN 15 ML BOTTLE BOTH EYES SCH ×5 (04:01→19:27)
[2019-12-21 04:53] LABS: ABG Base Excess -2 mEq/L (-2 to 3); ABG HCO3 24 mEq/L (21-27); ABG Oxygen Saturation 99 % (95-98); ABG PCO2 46 mmHg (35-45); ABG PH 7.32 pH Units (7.32-7.45); ABG PO2 135 mmHg (85-104); ABG TCO2 25 mEq/L (20-26); Blood Gas Modality AF; Blood Gas VT 500 cc
[2019-12-21] MEDS: *HR* Heparin 5,000 UNIT/ML VIAL SQ SCH ×2 (05:56→17:11)
[2019-12-21] MEDS: Pantoprazole 40 MG VIAL IVP SCH (05:56)
[2019-12-21 06:20] LABS: Basophils % 0.1 %; Hematocrit 29.7 % (37.5-50.1); Immature Granulocytes % 0.6 % (0-4); Immature Platelets 4.5 % (1.1-6.1); Lymphocytes # 1.1 K/mcL (0.6-4.6); Lymphocytes % 7.7 %; Mean Corpuscular HGB Conc 30.3 g/dL (31.6-35.5); Mean Corpuscular Hemoglobin 25.6 pg (28.0-33.3); Mean Corpuscular Volume 84.6 fL (83.0-100.0); Mean Platelet Volume 11.2 fL (9.4-12.4); Monocytes # 0.3 K/mcL (0.0-1.3); Monocytes % 2.1 %; Neutrophils # 12.7 K/mcL (1.6-8.9); Platelet Count 233 K/mcL (140-400); Red Blood Count 3.51 M/mcL (4.19-5.50); Red Cell Distribution Width 16.6 % (11.5-14.5); Segmented Neutrophils % 89.5 %; White Blood Count 14.1 K/mcL (4.3-11.1)
[2019-12-21 06:23] LABS: Prothrombin Time 11.6 Seconds (9.4-12.1)
[2019-12-21 06:25] LABS: Activated Partial Thrombo Time 22.8 Seconds (26.0-36.0)
[2019-12-21] MEDS: MethylPREDNISolone 40 MG/ML VIAL IVP SCH ×2 (08:00→17:09)
[2019-12-21] MEDS: Chlorhexidine Rinse 15 ML MOUTHWASH MM SCH ×2 (08:00→19:27)
[2019-12-21] MEDS: cefTRIAXone 2,000 MG in Water for inj. (sterile) 20 ML IVP SCH (08:00)
[2019-12-21] MEDS: Doxycycline 100 MG in 0.9 % Sodium Chloride Mini Bag 100 ML IVPB SCH (08:00)
[2019-12-21 08:59] LABS: Potassium 4.3 mEq/L (3.5-5.1)
[2019-12-21 09:00] LABS: Alanine Aminotransferase 13 Units/L (7-52); Albumin 2.2 g/dL (3.5-5.7); Albumin/Globulin Ratio 0.6 (1.1-2.2); Alkaline Phosphatase 79 Units/L (34-104); Aspartate Amino Transferase 24 Units/L (13-39); BUN/Creatinine Ratio 24 (6-26); Bilirubin,Indirect 0.2 mg/dL (0.0-1.0); Bilirubin,Total 0.2 mg/dL (0.3-1.0); Blood Urea Nitrogen 30 mg/dL (6-20); Calcium 8.3 mg/dL (8.6-10.3); Carbon Dioxide 22 mEq/L (23-29); Chloride 117 mEq/L (98-107); Globulin 3.9 g/dL (2.4-3.5); Glucose 118 mg/dL (70-105); Osmolality,Calculated 305 (280-300); Phosphorous 3.3 mg/dL (2.7-4.5); Sodium 144 mEq/L (136-145); Total Protein 6.1 g/dL (6.4-8.9); eGFR For African Americans > 60 (> 60); eGFR For Non-African Americans > 60 (> 60)
[2019-12-21] MEDS: Budesonide/Formoterol 160/4.5 1 PUFF INH IH SCH ×2 (11:32→22:00)
[2019-12-21] MEDS: Acetaminophen 325 MG TABLET PO PRN ×2 (13:43→20:29)
[2019-12-21] MEDS ORDERED: Dextrose Gel 15 GM/37.5 ML TUBE PO PRN ×2 (13:59)
[2019-12-21] MEDS ORDERED: *HR* Dextrose 50 % in Water (Syg) 50 ML SYRINGE IVP PRN (13:59)
[2019-12-21] MEDS ORDERED: D5% in Water 1,000 ML IVC PRN (13:59)
[2019-12-21] MEDS: Ketorolac 15 MG/ML VIAL IVP PRN ×2 (14:32→20:29)
[2019-12-21] MEDS ORDERED: Insulin Regular, Human 100 UNIT/ML IV SCH (16:30)
[2019-12-21] MEDS: Insulin LISPRO 300 UNITS/3 ML VIAL SQ SCH (16:36)
[2019-12-21] MEDS: Thiamine (B-1) 100 MG, Folic Acid 1 MG, MVI, adult with vitamin K 10 ML in 0.9 % Sodi... IVPB SCH (17:11)
[2019-12-21] MEDS: Norepinephrine 4 MG in 0.9 % Sodium Chloride 250 ML IVC SCH (19:27)
[2019-12-21] MEDS: metroNIDAZOLE 500 MG TABLET PO SCH (19:31)
[2019-12-21] MEDS ORDERED: QUEtiapine Fumarate 25 MG TABLET PO SCH (21:00)
[2019-12-21] MEDS ORDERED: Insulin LISPRO 300 UNITS/3 ML VIAL SQ SCH (21:00)
[2019-12-22] MEDS: Ipratropium/Albuterol Neb 3 ML IH SCH ×4 (03:43→22:25)
[2019-12-22] MEDS: Ketorolac 15 MG/ML VIAL IVP PRN ×4 (04:14→22:52)
[2019-12-22] MEDS: *HR* Heparin 5,000 UNIT/ML VIAL SQ SCH (05:12)
[2019-12-22] MEDS: MethylPREDNISolone 40 MG/ML VIAL IVP SCH ×2 (05:12→16:29)
[2019-12-22] MEDS: Pantoprazole 40 MG VIAL IVP SCH (05:12)
[2019-12-22 05:45] LABS: Basophils % 0.1 %; Hematocrit 29.6 % (37.5-50.1); Hemoglobin 8.9 g/dL (12.9-16.9); Immature Granulocytes % 0.7 % (0-4); Lymphocytes # 1.9 K/mcL (0.6-4.6); Lymphocytes % 15.7 %; Mean Corpuscular HGB Conc 30.1 g/dL (31.6-35.5); Mean Corpuscular Hemoglobin 25.6 pg (28.0-33.3); Mean Corpuscular Volume 85.3 fL (83.0-100.0); Mean Platelet Volume 11.4 fL (9.4-12.4); Monocytes # 0.4 K/mcL (0.0-1.3); Monocytes % 3.1 %; Neutrophils # 9.5 K/mcL (1.6-8.9); Platelet Count 260 K/mcL (140-400); Red Blood Count 3.47 M/mcL (4.19-5.50); Red Cell Distribution Width 16.4 % (11.5-14.5); Segmented Neutrophils % 80.4 %; White Blood Count 11.9 K/mcL (4.3-11.1)
[2019-12-22 05:48] LABS: Prothrombin Time 11.8 Seconds (9.4-12.1)
[2019-12-22 05:51] LABS: Activated Partial Thrombo Time 23.5 Seconds (26.0-36.0)
[2019-12-22 06:03] LABS: Chol/HDL Ratio 4.1 (0-4.9)
[2019-12-22 06:05] LABS: Alanine Aminotransferase 29 Units/L (7-52); Albumin 2.7 g/dL (3.5-5.7); Albumin/Globulin Ratio 0.7 (1.1-2.2); Alkaline Phosphatase 93 Units/L (34-104); Aspartate Amino Transferase 56 Units/L (13-39); BUN/Creatinine Ratio 30 (6-26); Bilirubin,Direct 0.1 mg/dL (0.0-0.2); Bilirubin,Indirect 0.3 mg/dL (0.0-1.0); Bilirubin,Total 0.4 mg/dL (0.3-1.0); Blood Urea Nitrogen 31 mg/dL (6-20); Calcium 8.3 mg/dL (8.6-10.3); Carbon Dioxide 24 mEq/L (23-29); Chloride 111 mEq/L (98-107); Globulin 3.8 g/dL (2.4-3.5); Glucose 79 mg/dL (70-105); Magnesium 1.8 mg/dL (1.6-2.6); Osmolality,Calculated 305 (280-300); Phosphorous 1.4 mg/dL (2.7-4.5); Potassium 4.1 mEq/L (3.5-5.1); Sodium 145 mEq/L (136-145); Total Protein 6.5 g/dL (6.4-8.9); eGFR For African Americans > 60 (> 60); eGFR For Non-African Americans > 60 (> 60)
[2019-12-22] MEDS: metroNIDAZOLE 500 MG TABLET PO SCH ×3 (07:59→22:52)
[2019-12-22] MEDS: cefTRIAXone 2,000 MG in Water for inj. (sterile) 20 ML IVP SCH (08:00)
[2019-12-22] MEDS: Insulin LISPRO 300 UNITS/3 ML VIAL SQ SCH ×4 (08:04→22:58)
[2019-12-22] MEDS ORDERED: Aspirin 81 MG TAB.CHEW PO SCH (09:00)
[2019-12-22] MEDS: Budesonide/Formoterol 160/4.5 1 PUFF INH IH SCH ×2 (09:08→22:26)
[2019-12-22] MEDS ORDERED: Folic Acid 1 MG TABLET PO SCH (12:37)
[2019-12-22] MEDS ORDERED: Thiamine (B-1) 100 MG TABLET PO SCH (12:37)
[2019-12-22] MEDS ORDERED: Multivit/Ca/Min/Fe/FA 1 TAB TABLET PO SCH (12:37)
[2019-12-22] MEDS ORDERED: *HR* Dextrose 50 % in Water (Syg) 50 ML SYRINGE IVP PRN (13:19)
[2019-12-22] MEDS ORDERED: Dextrose Gel 15 GM/37.5 ML TUBE PO PRN ×2 (13:19)
[2019-12-22] MEDS ORDERED: Albuterol 2.5 MG/3 ML NEBULIZER IH PRN (13:19)
[2019-12-22] MEDS ORDERED: D5% in Water 1,000 ML IVC PRN (13:19)
[2019-12-22] MEDS: levETIRAcetam 250 MG TABLET PO SCH (16:28)
[2019-12-22] MEDS ORDERED: levETIRAcetam 250 MG TABLET PO SCH ×2 (18:00→21:00)
[2019-12-22] MEDS: Vancomycin 500 MG in 0.9 % Sodium Chloride Mini Bag 100 ML IVPB SCH (22:51)
[2019-12-23] MEDS: Vancomycin 500 MG in 0.9 % Sodium Chloride Mini Bag 100 ML IVPB SCH ×3 (00:12→22:40)
[2019-12-23] MEDS: Ketorolac 15 MG/ML VIAL IVP PRN ×4 (00:13→18:28)
[2019-12-23 03:29] LABS: INR 1.1; Prothrombin Time 12.1 Seconds (9.4-12.1)
[2019-12-23 03:30] LABS: Basophils % 0.1 %; Eosinophils % 0.1 %; Hematocrit 28.5 % (37.5-50.1); Hemoglobin 8.9 g/dL (12.9-16.9); Immature Granulocytes % 0.7 % (0-4); Lymphocytes # 2.3 K/mcL (0.6-4.6); Lymphocytes % 25.8 %; Mean Corpuscular HGB Conc 31.2 g/dL (31.6-35.5); Mean Corpuscular Hemoglobin 25.8 pg (28.0-33.3); Mean Corpuscular Volume 82.6 fL (83.0-100.0); Mean Platelet Volume 11.8 fL (9.4-12.4); Monocytes # 0.5 K/mcL (0.0-1.3); Neutrophils # 5.9 K/mcL (1.6-8.9); Platelet Count 270 K/mcL (140-400); Red Blood Count 3.45 M/mcL (4.19-5.50); Segmented Neutrophils % 67.3 %; White Blood Count 8.8 K/mcL (4.3-11.1)
[2019-12-23 03:32] LABS: Activated Partial Thrombo Time 24.7 Seconds (26.0-36.0)
[2019-12-23] MEDS: Ipratropium/Albuterol Neb 3 ML IH SCH ×4 (03:42→21:26)
[2019-12-23 03:50] LABS: Alanine Aminotransferase 24 Units/L (7-52); Albumin 2.6 g/dL (3.5-5.7); Albumin/Globulin Ratio 0.7 (1.1-2.2); Alkaline Phosphatase 84 Units/L (34-104); Aspartate Amino Transferase 36 Units/L (13-39); BUN/Creatinine Ratio 27 (6-26); Bilirubin,Direct 0.1 mg/dL (0.0-0.2); Bilirubin,Indirect 0.4 mg/dL (0.0-1.0); Bilirubin,Total 0.5 mg/dL (0.3-1.0); Blood Urea Nitrogen 22 mg/dL (6-20); Calcium 8.4 mg/dL (8.6-10.3); Carbon Dioxide 26 mEq/L (23-29); Chloride 106 mEq/L (98-107); Globulin 3.7 g/dL (2.4-3.5); Glucose 82 mg/dL (70-105); Magnesium 1.7 mg/dL (1.6-2.6); Osmolality,Calculated 292 (280-300); Phosphorous 2.5 mg/dL (2.7-4.5); Potassium 4.1 mEq/L (3.5-5.1); Sodium 140 mEq/L (136-145); Total Protein 6.3 g/dL (6.4-8.9); eGFR For African Americans > 60 (> 60); eGFR For Non-African Americans > 60 (> 60)
[2019-12-23] MEDS: levETIRAcetam 250 MG TABLET PO SCH ×2 (06:06→17:13)
[2019-12-23] MEDS: MethylPREDNISolone 40 MG/ML VIAL IVP SCH ×2 (06:06→17:13)
[2019-12-23] MEDS ORDERED: cefTRIAXone 2,000 MG in Water for inj. (sterile) 20 ML IVP SCH (07:00)
[2019-12-23] MEDS: cefTRIAXone 2,000 MG in 0.9 % Sodium Chloride Mini Bag 100 ML IVPB SCH (08:18)
[2019-12-23] MEDS: Thiamine (B-1) 100 MG TABLET PO SCH (08:19)
[2019-12-23] MEDS: Aspirin 81 MG TAB.CHEW PO SCH (08:19)
[2019-12-23] MEDS: Folic Acid 1 MG TABLET PO SCH (08:19)
[2019-12-23] MEDS: Multivit/Ca/Min/Fe/FA 1 TAB TABLET PO SCH (08:19)
[2019-12-23] MEDS: metroNIDAZOLE 500 MG TABLET PO SCH ×3 (08:19→21:03)
[2019-12-23] MEDS: Insulin LISPRO 300 UNITS/3 ML VIAL SQ SCH ×4 (08:21→20:36)
[2019-12-23] MEDS ORDERED: Multivit/Ca/Min/Fe/FA 1 TAB TABLET PO SCH (09:00)
[2019-12-23] MEDS ORDERED: Folic Acid 1 MG TABLET PO SCH (09:00)
[2019-12-23] MEDS ORDERED: Thiamine (B-1) 100 MG TABLET PO SCH (09:00)
[2019-12-23] MEDS: Budesonide/Formoterol 160/4.5 1 PUFF INH IH SCH ×2 (09:51→21:26)
[2019-12-23] MEDS: Acetaminophen 325 MG TABLET PO PRN (21:04)
[2019-12-24] MEDS ORDERED: *HR* LORazepam 2 MG/ML VIAL IVP ONE ×2 (02:44→19:50)
[2019-12-24] MEDS: Ipratropium/Albuterol Neb 3 ML IH SCH ×4 (04:17→22:47)
[2019-12-24 04:57] LABS: Basophils % 0.1 %; Eosinophils % 0.1 %; Hematocrit 29.8 % (37.5-50.1); Hemoglobin 9.3 g/dL (12.9-16.9); Immature Granulocytes % 0.6 % (0-4); Lymphocytes # 2.4 K/mcL (0.6-4.6); Lymphocytes % 34.4 %; Mean Corpuscular HGB Conc 31.2 g/dL (31.6-35.5); Mean Corpuscular Hemoglobin 25.5 pg (28.0-33.3); Mean Corpuscular Volume 81.9 fL (83.0-100.0); Mean Platelet Volume 11.9 fL (9.4-12.4); Monocytes # 0.5 K/mcL (0.0-1.3); Monocytes % 7.2 %; Neutrophils # 4.1 K/mcL (1.6-8.9); Platelet Count 264 K/mcL (140-400); Red Blood Count 3.64 M/mcL (4.19-5.50); Red Cell Distribution Width 16.1 % (11.5-14.5); Segmented Neutrophils % 57.6 %; White Blood Count 7.1 K/mcL (4.3-11.1)
[2019-12-24 05:00] LABS: INR 1.1; Prothrombin Time 12.3 Seconds (9.4-12.1)
[2019-12-24 05:03] LABS: Activated Partial Thrombo Time 24.1 Seconds (26.0-36.0)
[2019-12-24 05:24] LABS: Alanine Aminotransferase 23 Units/L (7-52); Albumin 2.6 g/dL (3.5-5.7); Albumin/Globulin Ratio 0.7 (1.1-2.2); Alkaline Phosphatase 85 Units/L (34-104); Aspartate Amino Transferase 27 Units/L (13-39); BUN/Creatinine Ratio 21 (6-26); Bilirubin,Direct 0.2 mg/dL (0.0-0.2); Bilirubin,Indirect 0.2 mg/dL (0.0-1.0); Bilirubin,Total 0.4 mg/dL (0.3-1.0); Blood Urea Nitrogen 21 mg/dL (6-20); Calcium 8.3 mg/dL (8.6-10.3); Carbon Dioxide 27 mEq/L (23-29); Chloride 103 mEq/L (98-107); Globulin 3.6 g/dL (2.4-3.5); Glucose 104 mg/dL (70-105); Magnesium 1.7 mg/dL (1.6-2.6); Osmolality,Calculated 291 (280-300); Phosphorous 3.6 mg/dL (2.7-4.5); Potassium 3.9 mEq/L (3.5-5.1); Sodium 139 mEq/L (136-145); Total Protein 6.2 g/dL (6.4-8.9); eGFR For African Americans > 60 (> 60); eGFR For Non-African Americans > 60 (> 60)
[2019-12-24] MEDS: MethylPREDNISolone 40 MG/ML VIAL IVP SCH ×2 (05:48→16:24)
[2019-12-24] MEDS: levETIRAcetam 250 MG TABLET PO SCH ×2 (05:48→16:24)
[2019-12-24] MEDS: Thiamine (B-1) 100 MG TABLET PO SCH (07:35)
[2019-12-24] MEDS: Multivit/Ca/Min/Fe/FA 1 TAB TABLET PO SCH (07:35)
[2019-12-24] MEDS: metroNIDAZOLE 500 MG TABLET PO SCH ×3 (07:35→20:59)
[2019-12-24] MEDS: Aspirin 81 MG TAB.CHEW PO SCH (07:35)
[2019-12-24] MEDS: Insulin LISPRO 300 UNITS/3 ML VIAL SQ SCH ×4 (07:36→21:08)
[2019-12-24] MEDS: Folic Acid 1 MG TABLET PO SCH (07:36)
[2019-12-24] MEDS: cefTRIAXone 2,000 MG in 0.9 % Sodium Chloride Mini Bag 100 ML IVPB SCH (07:37)
[2019-12-24] MEDS: Ketorolac 15 MG/ML VIAL IVP PRN ×3 (07:47→20:59)
[2019-12-24] MEDS ORDERED: Aminoglycoside Consult 1 EACH MC ONE (08:33)
[2019-12-24] MEDS: Budesonide/Formoterol 160/4.5 1 PUFF INH IH SCH ×2 (10:13→22:47)
[2019-12-24] MEDS: Vancomycin 500 MG in 0.9 % Sodium Chloride Mini Bag 100 ML IVPB SCH ×2 (11:28→22:44)
[2019-12-25] MEDS: Ipratropium/Albuterol Neb 3 ML IH SCH ×4 (03:22→22:08)
[2019-12-25] MEDS: levETIRAcetam 250 MG TABLET PO SCH ×2 (04:39→17:28)
[2019-12-25] MEDS: Ketorolac 15 MG/ML VIAL IVP PRN ×4 (04:39→21:22)
[2019-12-25] MEDS: MethylPREDNISolone 40 MG/ML VIAL IVP SCH (04:41)
[2019-12-25 05:05] LABS: Basophils % 0.2 %; Eosinophils # 0.1 K/mcL (0.0-0.6); Eosinophils % 0.6 %; Hematocrit 32.3 % (37.5-50.1); Hemoglobin 10.2 g/dL (12.9-16.9); Immature Granulocytes % 0.9 % (0-4); Lymphocytes # 2.4 K/mcL (0.6-4.6); Lymphocytes % 22.4 %; Mean Corpuscular HGB Conc 31.6 g/dL (31.6-35.5); Mean Corpuscular Hemoglobin 25.9 pg (28.0-33.3); Mean Platelet Volume 10.8 fL (9.4-12.4); Monocytes # 0.7 K/mcL (0.0-1.3); Monocytes % 6.4 %; Neutrophils # 7.6 K/mcL (1.6-8.9); Platelet Count 272 K/mcL (140-400); Red Blood Count 3.94 M/mcL (4.19-5.50); Red Cell Distribution Width 16.2 % (11.5-14.5); Segmented Neutrophils % 69.5 %; White Blood Count 10.9 K/mcL (4.3-11.1)
[2019-12-25 05:22] LABS: Alanine Aminotransferase 20 Units/L (7-52); Albumin 2.7 g/dL (3.5-5.7); Albumin/Globulin Ratio 0.7 (1.1-2.2); Alkaline Phosphatase 86 Units/L (34-104); Aspartate Amino Transferase 24 Units/L (13-39); BUN/Creatinine Ratio 29 (6-26); Bilirubin,Direct 0.1 mg/dL (0.0-0.2); Bilirubin,Indirect 0.3 mg/dL (0.0-1.0); Bilirubin,Total 0.4 mg/dL (0.3-1.0); Blood Urea Nitrogen 24 mg/dL (6-20); Calcium 8.4 mg/dL (8.6-10.3); Carbon Dioxide 27 mEq/L (23-29); Chloride 104 mEq/L (98-107); Globulin 3.7 g/dL (2.4-3.5); Glucose 93 mg/dL (70-105); Magnesium 1.6 mg/dL (1.6-2.6); Osmolality,Calculated 286 (280-300); Phosphorous 3.1 mg/dL (2.7-4.5); Potassium 3.9 mEq/L (3.5-5.1); Sodium 136 mEq/L (136-145); Total Protein 6.4 g/dL (6.4-8.9); eGFR For African Americans > 60 (> 60); eGFR For Non-African Americans > 60 (> 60)
[2019-12-25 05:23] LABS: INR 1.1; Prothrombin Time 12.1 Seconds (9.4-12.1)
[2019-12-25 05:24] LABS: Activated Partial Thrombo Time 24.3 Seconds (26.0-36.0)
[2019-12-25] MEDS: Insulin LISPRO 300 UNITS/3 ML VIAL SQ SCH ×4 (07:24→21:26)
[2019-12-25] MEDS: Multivit/Ca/Min/Fe/FA 1 TAB TABLET PO SCH (07:52)
[2019-12-25] MEDS: cefTRIAXone 2,000 MG in 0.9 % Sodium Chloride Mini Bag 100 ML IVPB SCH (07:55)
[2019-12-25] MEDS: Folic Acid 1 MG TABLET PO SCH (07:55)
[2019-12-25] MEDS: Thiamine (B-1) 100 MG TABLET PO SCH (07:55)
[2019-12-25] MEDS: Aspirin 81 MG TAB.CHEW PO SCH (07:55)
[2019-12-25] MEDS: metroNIDAZOLE 500 MG TABLET PO SCH ×3 (07:55→21:22)
[2019-12-25] MEDS: Budesonide/Formoterol 160/4.5 1 PUFF INH IH SCH ×2 (10:50→22:08)
[2019-12-25] MEDS ORDERED: *HR* Metoprolol 5 MG/5 ML VIAL IVP ONE (14:58)
[2019-12-25] MEDS ORDERED: Melatonin 3 MG TABLET PO ONE (21:02)
[2019-12-26] MEDS: Acetaminophen 325 MG TABLET PO PRN ×2 (01:26→11:34)
[2019-12-26 02:37] LABS: Basophils % 0.3 %; Eosinophils # 0.1 K/mcL (0.0-0.6); Hemoglobin 11.1 g/dL (12.9-16.9); Immature Granulocytes % 1.5 % (0-4); Lymphocytes # 2.7 K/mcL (0.6-4.6); Lymphocytes % 28.3 %; Mean Corpuscular HGB Conc 31.7 g/dL (31.6-35.5); Mean Corpuscular Hemoglobin 26.3 pg (28.0-33.3); Mean Corpuscular Volume 82.9 fL (83.0-100.0); Mean Platelet Volume 11.8 fL (9.4-12.4); Monocytes # 0.7 K/mcL (0.0-1.3); Monocytes % 7.7 %; Neutrophils # 5.8 K/mcL (1.6-8.9); Platelet Count 329 K/mcL (140-400); Red Blood Count 4.22 M/mcL (4.19-5.50); Red Cell Distribution Width 17.5 % (11.5-14.5); Segmented Neutrophils % 61.2 %; White Blood Count 9.5 K/mcL (4.3-11.1)
[2019-12-26 02:55] LABS: BUN/Creatinine Ratio 31 (6-26); Blood Urea Nitrogen 29 mg/dL (6-20); Calcium 8.6 mg/dL (8.6-10.3); Carbon Dioxide 24 mEq/L (23-29); Chloride 107 mEq/L (98-107); Glucose 98 mg/dL (70-105); Osmolality,Calculated 294 (280-300); Potassium 4.6 mEq/L (3.5-5.1); Sodium 139 mEq/L (136-145); eGFR For African Americans > 60 (> 60); eGFR For Non-African Americans > 60 (> 60)
[2019-12-26] MEDS: Ipratropium/Albuterol Neb 3 ML IH SCH ×4 (03:21→22:30)
[2019-12-26] MEDS: Ketorolac 15 MG/ML VIAL IVP PRN (03:46)
[2019-12-26] MEDS: levETIRAcetam 250 MG TABLET PO SCH ×2 (06:00→16:48)
[2019-12-26] MEDS: Insulin LISPRO 300 UNITS/3 ML VIAL SQ SCH ×2 (08:14→11:14)
[2019-12-26] MEDS: cefTRIAXone 2,000 MG in 0.9 % Sodium Chloride Mini Bag 100 ML IVPB SCH (08:15)
[2019-12-26] MEDS: metroNIDAZOLE 500 MG TABLET PO SCH ×3 (08:18→21:17)
[2019-12-26] MEDS: Multivit/Ca/Min/Fe/FA 1 TAB TABLET PO SCH (08:18)
[2019-12-26] MEDS: Thiamine (B-1) 100 MG TABLET PO SCH (08:18)
[2019-12-26] MEDS: Aspirin 81 MG TAB.CHEW PO SCH (08:18)
[2019-12-26] MEDS: Folic Acid 1 MG TABLET PO SCH (08:19)
[2019-12-26] MEDS ORDERED: MethylPREDNISolone 40 MG/ML VIAL IVP SCH (09:00)
[2019-12-26] MEDS: Budesonide/Formoterol 160/4.5 1 PUFF INH IH SCH ×2 (10:11→22:30)
[2019-12-27] MEDS: Ipratropium/Albuterol Neb 3 ML IH SCH ×2 (04:02→09:19)
[2019-12-27 05:05] LABS: Basophils % 0.2 %; Eosinophils # 0.1 K/mcL (0.0-0.6); Eosinophils % 0.7 %; Hemoglobin 11.2 g/dL (12.9-16.9); Immature Granulocytes % 0.9 % (0-4); Immature Platelets 6.9 % (1.1-6.1); Lymphocytes # 2.7 K/mcL (0.6-4.6); Lymphocytes % 20.8 %; Mean Corpuscular Volume 81.4 fL (83.0-100.0); Mean Platelet Volume 11.4 fL (9.4-12.4); Monocytes # 0.8 K/mcL (0.0-1.3); Monocytes % 6.4 %; Platelet Count 305 K/mcL (140-400); Red Cell Distribution Width 18.6 % (11.5-14.5); White Blood Count 12.7 K/mcL (4.3-11.1)
[2019-12-27 05:16] LABS: BUN/Creatinine Ratio 25 (6-26); Blood Urea Nitrogen 24 mg/dL (6-20); Calcium 8.7 mg/dL (8.6-10.3); Carbon Dioxide 25 mEq/L (23-29); Chloride 106 mEq/L (98-107); Glucose 93 mg/dL (70-105); Osmolality,Calculated 296 (280-300); Potassium 4.2 mEq/L (3.5-5.1); Sodium 141 mEq/L (136-145); eGFR For African Americans > 60 (> 60); eGFR For Non-African Americans > 60 (> 60)
[2019-12-27] MEDS: levETIRAcetam 250 MG TABLET PO SCH (05:58)
[2019-12-27] MEDS ORDERED: predniSONE 20 MG TABLET PO SCH (09:00)
[2019-12-27] MEDS: Budesonide/Formoterol 160/4.5 1 PUFF INH IH SCH (09:19)
[2019-12-27] MEDS: cefTRIAXone 2,000 MG in 0.9 % Sodium Chloride Mini Bag 100 ML IVPB SCH (09:28)
[2019-12-27] MEDS: metroNIDAZOLE 500 MG TABLET PO SCH (09:30)
[2019-12-27] MEDS: Folic Acid 1 MG TABLET PO SCH (09:30)
[2019-12-27] MEDS: Multivit/Ca/Min/Fe/FA 1 TAB TABLET PO SCH (09:30)
[2019-12-27] MEDS: Thiamine (B-1) 100 MG TABLET PO SCH (09:30)
[2019-12-27] MEDS: Aspirin 81 MG TAB.CHEW PO SCH (09:30)
[2019-12-27 10:51] VITALS: BP 137/86
[2019-12-28] MEDS ORDERED: predniSONE 20 MG TABLET PO SCH (09:00)
== END 2019-12-27 12:12 | DRG 720 ==
LOC: EMEROOARM 11:48 → SUATTDRO 19:56 → ICNU 19:56 → 2ANU 12-22 16:22
PROVIDERS: ADMIT Pediatrics; ATTEND Internal Medicine

== ENCOUNTER 2020-03-27 11:19 | Inpatient (IN) ==
[2020-03-27] MEDS ORDERED: Ipratropium/Albuterol Neb 3 ML IH ONE (11:56)
[2020-03-27] MEDS ORDERED: methylPREDNISolone 125 MG/2 ML VIAL IVP ONE (11:56)
[2020-03-27] MEDS ORDERED: Aspirin 81 MG TAB.CHEW ONE (13:20)
[2020-03-27] MEDS ORDERED: Aspirin 81 MG TAB.CHEW PO ONE (13:21)
[2020-03-27 13:29] LABS: Hematocrit 36.3 % (37.5-50.1); Hemoglobin 11.2 g/dL (12.9-16.9); Mean Corpuscular HGB Conc 30.9 g/dL (31.6-35.5); Mean Corpuscular Hemoglobin 24.7 pg (28.0-33.3); Mean Corpuscular Volume 80.1 fL (83.0-100.0); Mean Platelet Volume 11.1 fL (9.4-12.4); Platelet Count 301 K/mcL (140-400); Red Blood Count 4.53 M/mcL (4.19-5.50); Red Cell Distribution Width 17.6 % (11.5-14.5); White Blood Count 11.8 K/mcL (4.3-11.1)
[2020-03-27 13:56] LABS: Alanine Aminotransferase 72 Units/L (7-52); Albumin/Globulin Ratio 0.6 (1.1-2.2); Alkaline Phosphatase 136 Units/L (34-104); Aspartate Amino Transferase 45 Units/L (13-39); BUN/Creatinine Ratio 13 (6-26); Bilirubin,Total 0.8 mg/dL (0.3-1.0); Blood Urea Nitrogen 11 mg/dL (6-20); C-Reactive Protein 58 mg/L (Less than 10); Calcium 8.8 mg/dL (8.6-10.3); Carbon Dioxide 28 mEq/L (23-29); Chloride 104 mEq/L (98-107); Globulin 4.9 g/dL (2.4-3.5); Glucose 95 mg/dL (70-105); Osmolality,Calculated 291 (280-300); Potassium 3.7 mEq/L (3.5-5.1); Sodium 141 mEq/L (136-145); Total Protein 7.9 g/dL (6.4-8.9); Troponin I 0.04 ng/mL (< 0.04); eGFR For African Americans > 60 (> 60); eGFR For Non-African Americans > 60 (> 60)
[2020-03-27] MEDS ORDERED: Azithromycin 500 MG in 0.9 % Sodium Chloride 250 ML IVPB ONE (14:57)
[2020-03-27] MEDS ORDERED: cefTRIAXone 1,000 MG in Water for inj. (sterile) 10 ML IVP ONE (14:57)
[2020-03-27] MEDS ORDERED: Ondansetron 4 MG/2 ML VIAL IVP PRN (15:12)
[2020-03-27] MEDS ORDERED: Naloxone 0.4 MG/ML INJ IVP PRN (15:12)
[2020-03-27] MEDS ORDERED: Furosemide 40 MG/4 ML VIAL IVP ONE ×2 (18:02→21:15)
[2020-03-27] MEDS: levETIRAcetam 250 MG TABLET PO SCH (21:06)
[2020-03-27] MEDS: *HR* Heparin 5,000 UNIT/ML VIAL SQ SCH (21:06)
[2020-03-27] MEDS: MethylPREDNISolone 40 MG/ML VIAL IVP SCH (21:06)
[2020-03-27 22:18] LABS: Bilirubin,Urine Small (Negative); Blood,Urine Negative (Negative); Clarity,Urine Clear (Clear); Color,Urine Yellow (Yellow); Glucose,Urine (UA) Normal (Normal); Ketones,Urine Negative (Negative); Leukocyte Esterase,Urine Negative (Negative); Nitrite,Urine Negative (Negative); PH,Urine 6.5 pH Units (5.0-8.0); Protein,Urine 30 mg/dL (Neg-Trace); Specific Gravity,Urine 1.022 (1.010-1.025); Urobilinogen,Urine Normal (Normal)
[2020-03-27 22:20] LABS: Bacteria,Urine None Seen per hpf (None-Few); Hyaline Casts,Urine None Seen per lpf (None-Few); RBC,Urine 0-3 per hpf (0-3); Squamous Epithelial Cell,Urine Many per lpf (None-Few); WBC,Urine 0-3 per hpf (0-3)
[2020-03-27 22:31] LABS: Amphetamine Screen,Urine Positive ng/mL (Cutoff=1000); Barbiturate Screen,Urine Negative ng/mL (Cutoff=200); Benzodiazepines Screen,Urine Negative ng/mL (Cutoff=200); Cannabinoid Screen,Urine Negative ng/mL (Cutoff = 50); Cocaine Screen,Urine Negative ng/mL (Cutoff= 300); Opiate Screen,Urine Positive ng/mL (Cutoff=300); Phencyclidine Screen,Urine Negative ng/mL (Cutoff=25)
[2020-03-27] MEDS ORDERED: Famotidine 20 MG TABLET PO ONE (23:06)
[2020-03-27] MEDS ORDERED: Melatonin 3 MG TABLET PO ONE (23:07)
[2020-03-28 00:47] LABS: Basophils % 0.1 %; Hematocrit 33.5 % (37.5-50.1); Hemoglobin 10.5 g/dL (12.9-16.9); Immature Granulocytes % 0.3 % (0-4); Lymphocytes # 0.7 K/mcL (0.6-4.6); Lymphocytes % 8.3 %; Mean Corpuscular HGB Conc 31.3 g/dL (31.6-35.5); Mean Corpuscular Hemoglobin 24.8 pg (28.0-33.3); Mean Corpuscular Volume 79.2 fL (83.0-100.0); Mean Platelet Volume 11.5 fL (9.4-12.4); Monocytes # 0.2 K/mcL (0.0-1.3); Monocytes % 2.4 %; Neutrophils # 7.1 K/mcL (1.6-8.9); Platelet Count 301 K/mcL (140-400); Red Blood Count 4.23 M/mcL (4.19-5.50); Red Cell Distribution Width 17.7 % (11.5-14.5); Segmented Neutrophils % 88.9 %
[2020-03-28 00:48] LABS: Estimated Average Glucose 126 mg/dl
[2020-03-28 01:11] LABS: BUN/Creatinine Ratio 20 (6-26); Blood Urea Nitrogen 18 mg/dL (6-20); Calcium 8.5 mg/dL (8.6-10.3); Carbon Dioxide 29 mEq/L (23-29); Chloride 102 mEq/L (98-107); Glucose 142 mg/dL (70-105); Magnesium 1.7 mg/dL (1.6-2.6); Osmolality,Calculated 292 (280-300); Potassium 3.7 mEq/L (3.5-5.1); Sodium 139 mEq/L (136-145); eGFR For African Americans > 60 (> 60); eGFR For Non-African Americans > 60 (> 60)
[2020-03-28 01:12] LABS: Chol/HDL Ratio 4.3 (0-4.9)
[2020-03-28] MEDS: MethylPREDNISolone 40 MG/ML VIAL IVP SCH ×2 (05:19→18:46)
[2020-03-28] MEDS: *HR* Heparin 5,000 UNIT/ML VIAL SQ SCH ×2 (05:19→18:44)
[2020-03-28] MEDS: levETIRAcetam 250 MG TABLET PO SCH ×2 (05:19→18:45)
[2020-03-28] MEDS ORDERED: Furosemide 40 MG/4 ML VIAL IVP ONE (07:45)
[2020-03-28] MEDS: cefTRIAXone 1,000 MG in Water for inj. (sterile) 10 ML IVP SCH (08:49)
[2020-03-28] MEDS ORDERED: Ketorolac 15 MG/ML VIAL IVP PRN (11:54)
[2020-03-28] MEDS: tiZANidine 4 MG TABLET PO PRN ×2 (13:53→18:44)
[2020-03-28] MEDS: Ketorolac 30 MG/ML VIAL IVP PRN ×2 (13:53→20:16)
[2020-03-28] MEDS ORDERED: Azithromycin 500 MG in 0.9 % Sodium Chloride 250 ML IVPB SCH (15:00)
[2020-03-28] MEDS: Azithromycin 500 MG in 0.9 % Sodium Chloride 250 ML IVPB SCH (18:43)
[2020-03-29] MEDS: Levalbuterol Neb 1.25 MG/3 ML IH SCH ×5 (01:47→22:38)
[2020-03-29 02:45] LABS: ABG Base Excess 8 mEq/L (-2 to 3); ABG HCO3 32 mEq/L (21-27); ABG Oxygen Saturation 100 % (95-98); ABG PCO2 43 mmHg (35-45); ABG PH 7.48 pH Units (7.32-7.45); ABG PO2 152 mmHg (85-104); ABG TCO2 33 mEq/L (20-26); Blood Gas Modality BiLevel
[2020-03-29] MEDS ORDERED: *HR* LORazepam 2 MG/ML VIAL IVP ONE (03:22)
[2020-03-29 04:02] LABS: Basophils % 0.1 %; Hematocrit 32.7 % (37.5-50.1); Hemoglobin 10.1 g/dL (12.9-16.9); Immature Granulocytes % 0.4 % (0-4); Lymphocytes # 0.9 K/mcL (0.6-4.6); Mean Corpuscular HGB Conc 30.9 g/dL (31.6-35.5); Mean Corpuscular Hemoglobin 24.6 pg (28.0-33.3); Mean Corpuscular Volume 79.6 fL (83.0-100.0); Mean Platelet Volume 12.2 fL (9.4-12.4); Monocytes # 0.5 K/mcL (0.0-1.3); Monocytes % 4.5 %; Neutrophils # 9.6 K/mcL (1.6-8.9); Platelet Count 301 K/mcL (140-400); Red Blood Count 4.11 M/mcL (4.19-5.50); Red Cell Distribution Width 17.4 % (11.5-14.5)
[2020-03-29 04:22] LABS: BUN/Creatinine Ratio 38 (6-26); Blood Urea Nitrogen 36 mg/dL (6-20); Calcium 8.4 mg/dL (8.6-10.3); Carbon Dioxide 29 mEq/L (23-29); Chloride 100 mEq/L (98-107); Glucose 137 mg/dL (70-105); Osmolality,Calculated 300 (280-300); Potassium 3.8 mEq/L (3.5-5.1); Sodium 140 mEq/L (136-145); eGFR For African Americans > 60 (> 60); eGFR For Non-African Americans > 60 (> 60)
[2020-03-29] MEDS ORDERED: Levalbuterol Neb 1.25 MG/3 ML ONE (04:23)
[2020-03-29] MEDS ORDERED: *HR* Metoprolol 5 MG/5 ML VIAL IVP ONE (05:24)
[2020-03-29] MEDS ORDERED: *HR* LORazepam 2 MG/ML VIAL IVP PRN (05:28)
[2020-03-29 06:01] LABS: Amylase 62 Units/L (29-103); Lipase 51 Units/L (11-82)
[2020-03-29] MEDS: *HR* Heparin 5,000 UNIT/ML VIAL SQ SCH ×2 (06:13→17:20)
[2020-03-29] MEDS: MethylPREDNISolone 40 MG/ML VIAL IVP SCH ×2 (06:13→17:21)
[2020-03-29] MEDS: levETIRAcetam 250 MG TABLET PO SCH (06:14)
[2020-03-29 06:48] LABS: Prothrombin Time 11.8 Seconds (9.4-12.1)
[2020-03-29] MEDS: cefTRIAXone 1,000 MG in Water for inj. (sterile) 10 ML IVP SCH (08:46)
[2020-03-29] MEDS: Aspirin Enteric Coated 81 MG Tablet PO SCH (08:46)
[2020-03-29] MEDS: *HR* LORazepam 2 MG/ML VIAL IVP PRN ×3 (08:49→18:55)
[2020-03-29] MEDS: Furosemide 40 MG/4 ML VIAL IVP SCH ×2 (09:00→17:20)
[2020-03-29] MEDS ORDERED: cloNIDine HCL 0.1 MG TABLET PO SCH ×2 (09:34→10:14)
[2020-03-29] MEDS ORDERED: *HR* Buprenorphine HCl 2 MG SUBLINGUAL TABLET SL SCH (10:45)
[2020-03-29] MEDS ORDERED: Isovue-370 500 ML BOTTLE IVP ONE (13:45)
[2020-03-29] MEDS: Azithromycin 500 MG in 0.9 % Sodium Chloride 250 ML IVPB SCH (17:21)
[2020-03-29 19:44] LABS: Mixed Venous Blood pCO2 49 mmHg (44-46); Mixed Venous Blood pH 7.41 pH Units (7.34-7.36); Mixed Venous Blood pO2 49 mmHg (35-45)
[2020-03-29 20:15] LABS: ABG Base Excess 4 mEq/L (-2 to 3); ABG HCO3 29 mEq/L (21-27); ABG Oxygen Saturation 99 % (95-98); ABG PCO2 43 mmHg (35-45); ABG PH 7.43 pH Units (7.32-7.45); ABG PO2 148 mmHg (85-104); ABG TCO2 30 mEq/L (20-26)
[2020-03-29] MEDS ORDERED: Furosemide 20 MG/2 ML VIAL IVP ONE (20:18)
[2020-03-29] MEDS ORDERED: Haloperidol Lactate 5 MG/ML VIAL IM ONE (20:39)
[2020-03-29] MEDS: Dexmedetomidine HCl 400 MCG/100 ML MLS IVC SCH (21:42)
[2020-03-30] MEDS: Levalbuterol Neb 1.25 MG/3 ML IH SCH ×4 (04:16→22:15)
[2020-03-30] MEDS: Dexmedetomidine HCl 400 MCG/100 ML MLS IVC SCH ×3 (04:16→18:21)
[2020-03-30 05:12] LABS: Basophils % 0.1 %; Hematocrit 32.4 % (37.5-50.1); Hemoglobin 10.2 g/dL (12.9-16.9); Immature Granulocytes % 0.5 % (0-4); Lymphocytes # 1.6 K/mcL (0.6-4.6); Mean Corpuscular HGB Conc 31.5 g/dL (31.6-35.5); Mean Corpuscular Hemoglobin 25.6 pg (28.0-33.3); Mean Corpuscular Volume 81.2 fL (83.0-100.0); Mean Platelet Volume 11.6 fL (9.4-12.4); Monocytes # 0.4 K/mcL (0.0-1.3); Monocytes % 4.8 %; Neutrophils # 6.3 K/mcL (1.6-8.9); Platelet Count 248 K/mcL (140-400); Red Blood Count 3.99 M/mcL (4.19-5.50); Red Cell Distribution Width 17.4 % (11.5-14.5); Segmented Neutrophils % 75.6 %; White Blood Count 8.3 K/mcL (4.3-11.1)
[2020-03-30] MEDS: *HR* Heparin 5,000 UNIT/ML VIAL SQ SCH ×2 (05:12→17:42)
[2020-03-30] MEDS: MethylPREDNISolone 40 MG/ML VIAL IVP SCH ×2 (05:12→17:42)
[2020-03-30 05:21] LABS: BUN/Creatinine Ratio 33 (6-26); Blood Urea Nitrogen 36 mg/dL (6-20); Carbon Dioxide 30 mEq/L (23-29); Chloride 103 mEq/L (98-107); Potassium 4.5 mEq/L (3.5-5.1); Sodium 135 mEq/L (136-145); eGFR For African Americans > 60 (> 60)
[2020-03-30 05:22] LABS: Calcium 8.5 mg/dL (8.6-10.3); Glucose 137 mg/dL (70-105); Magnesium 1.8 mg/dL (1.6-2.6); Osmolality,Calculated 290 (280-300); eGFR For Non-African Americans > 60 (> 60)
[2020-03-30] MEDS: cefTRIAXone 1,000 MG in Water for inj. (sterile) 10 ML IVP SCH (08:07)
[2020-03-30] MEDS: Furosemide 40 MG/4 ML VIAL IVP SCH (08:07)
[2020-03-30] MEDS: Aspirin Enteric Coated 81 MG Tablet PO SCH (08:08)
[2020-03-30] MEDS ORDERED: D5% in 0.9% NACL 1,000 ML IVC SCH (10:00)
[2020-03-30] MEDS: *HR* LORazepam 2 MG/ML VIAL IVP PRN ×2 (12:46→22:09)
[2020-03-30] MEDS ORDERED: Furosemide 40 MG/4 ML VIAL IVP SCH (17:00)
[2020-03-30] MEDS: Azithromycin 500 MG in 0.9 % Sodium Chloride 250 ML IVPB SCH (17:44)
[2020-03-30] MEDS: Thiamine (B-1) 100 MG, Folic Acid 1 MG, MVI, adult with vitamin K 10 ML in 0.9 % Sodi... IVPB SCH (17:51)
[2020-03-30] MEDS: *HR* OxyCODONE Immed Rel 5 MG TABLET PO PRN (20:30)
[2020-03-31] MEDS: Dexmedetomidine HCl 400 MCG/100 ML MLS IVC SCH ×3 (00:40→12:33)
[2020-03-31] MEDS: *HR* LORazepam 2 MG/ML VIAL IVP PRN (03:22)
[2020-03-31 04:03] LABS: Hematocrit 35.8 % (37.5-50.1); Hemoglobin 11.1 g/dL (12.9-16.9); Mean Corpuscular Hemoglobin 25.1 pg (28.0-33.3); Mean Corpuscular Volume 80.8 fL (83.0-100.0); Mean Platelet Volume 12.1 fL (9.4-12.4); Platelet Count 253 K/mcL (140-400); Red Blood Count 4.43 M/mcL (4.19-5.50); Red Cell Distribution Width 17.3 % (11.5-14.5); White Blood Count 6.8 K/mcL (4.3-11.1)
[2020-03-31 04:04] LABS: BUN/Creatinine Ratio 34 (6-26); Blood Urea Nitrogen 47 mg/dL (6-20); Calcium 8.1 mg/dL (8.6-10.3); Carbon Dioxide 29 mEq/L (23-29); Chloride 101 mEq/L (98-107); Glucose 152 mg/dL (70-105); Osmolality,Calculated 305 (280-300); Potassium 4.5 mEq/L (3.5-5.1); Sodium 140 mEq/L (136-145); eGFR For African Americans > 60 (> 60); eGFR For Non-African Americans 52 (> 60)
[2020-03-31] MEDS: Levalbuterol Neb 1.25 MG/3 ML IH SCH ×2 (04:38→10:33)
[2020-03-31] MEDS: MethylPREDNISolone 40 MG/ML VIAL IVP SCH (06:21)
[2020-03-31] MEDS: *HR* Heparin 5,000 UNIT/ML VIAL SQ SCH ×2 (06:21→16:48)
[2020-03-31] MEDS: 0.9 % Sodium Chloride 1,000 ML IVC SCH ×2 (06:24→19:21)
[2020-03-31] MEDS: cefTRIAXone 1,000 MG in Water for inj. (sterile) 10 ML IVP SCH (07:54)
[2020-03-31] MEDS: Aspirin Enteric Coated 81 MG Tablet PO SCH ×2 (07:55→08:00)
[2020-03-31] MEDS: *HR* OxyCODONE Immed Rel 5 MG TABLET PO PRN ×2 (07:55→16:31)
[2020-03-31] MEDS: Azithromycin 500 MG in 0.9 % Sodium Chloride 250 ML IVPB SCH (16:32)
[2020-03-31] MEDS: Thiamine (B-1) 100 MG, Folic Acid 1 MG, MVI, adult with vitamin K 10 ML in 0.9 % Sodi... IVPB SCH (16:43)
[2020-03-31 23:14] LABS: ABG Base Excess 2 mEq/L (-2 to 3); ABG HCO3 26 mEq/L (21-27); ABG Oxygen Saturation 100 % (95-98); ABG PCO2 37 mmHg (35-45); ABG PH 7.45 pH Units (7.32-7.45); ABG PO2 170 mmHg (85-104); ABG TCO2 27 mEq/L (20-26)
[2020-04-01 01:48] LABS: Basophils % 0.1 %; Eosinophils % 0.1 %; Hematocrit 33.8 % (37.5-50.1); Hemoglobin 10.5 g/dL (12.9-16.9); Immature Granulocytes % 0.4 % (0-4); Lymphocytes # 2.7 K/mcL (0.6-4.6); Lymphocytes % 18.9 %; Mean Corpuscular HGB Conc 31.1 g/dL (31.6-35.5); Mean Corpuscular Hemoglobin 25.2 pg (28.0-33.3); Mean Corpuscular Volume 81.1 fL (83.0-100.0); Mean Platelet Volume 11.6 fL (9.4-12.4); Monocytes % 7.2 %; Neutrophils # 10.5 K/mcL (1.6-8.9); Platelet Count 299 K/mcL (140-400); Red Blood Count 4.17 M/mcL (4.19-5.50); Red Cell Distribution Width 17.4 % (11.5-14.5); Segmented Neutrophils % 73.3 %; White Blood Count 14.3 K/mcL (4.3-11.1)
[2020-04-01 02:08] LABS: Alanine Aminotransferase 34 Units/L (7-52); Albumin 2.8 g/dL (3.5-5.7); Albumin/Globulin Ratio 0.8 (1.1-2.2); Alkaline Phosphatase 97 Units/L (34-104); Aspartate Amino Transferase 33 Units/L (13-39); BUN/Creatinine Ratio 37 (6-26); Bilirubin,Total 0.4 mg/dL (0.3-1.0); Blood Urea Nitrogen 44 mg/dL (6-20); Carbon Dioxide 25 mEq/L (23-29); Chloride 104 mEq/L (98-107); Globulin 3.7 g/dL (2.4-3.5); Glucose 94 mg/dL (70-105); Magnesium 1.8 mg/dL (1.6-2.6); Osmolality,Calculated 299 (280-300); Phosphorous 3.8 mg/dL (2.7-4.5); Potassium 4.3 mEq/L (3.5-5.1); Sodium 139 mEq/L (136-145); Total Protein 6.5 g/dL (6.4-8.9); eGFR For African Americans > 60 (> 60); eGFR For Non-African Americans > 60 (> 60)
[2020-04-01] MEDS ORDERED: polyethylene glycoL 3350 17 GM POWD.PACK PO PRN (03:20)
[2020-04-01] MEDS: Dexmedetomidine HCl 400 MCG/100 ML MLS IVC SCH ×2 (03:50→10:32)
[2020-04-01] MEDS: Ipratropium/Albuterol Neb 3 ML IH PRN ×3 (04:07→15:46)
[2020-04-01] MEDS: *HR* Heparin 5,000 UNIT/ML VIAL SQ SCH ×2 (04:53→18:27)
[2020-04-01] MEDS: *HR* LORazepam 2 MG/ML VIAL IVP PRN (04:57)
[2020-04-01 05:23] LABS: Bilirubin,Urine Negative (Negative); Blood,Urine Small (Negative); Clarity,Urine Clear (Clear); Color,Urine Yellow (Yellow); Glucose,Urine (UA) Normal (Normal); Ketones,Urine Negative (Negative); Leukocyte Esterase,Urine Negative (Negative); Nitrite,Urine Negative (Negative); Protein,Urine 30 mg/dL (Neg-Trace); Specific Gravity,Urine 1.024 (1.010-1.025); Urobilinogen,Urine Normal (Normal)
[2020-04-01 05:24] LABS: Bacteria,Urine None Seen per hpf (None-Few); Hyaline Casts,Urine None Seen per lpf (None-Few); RBC,Urine 15-30 per hpf (0-3); Squamous Epithelial Cell,Urine Few per lpf (None-Few); WBC,Urine 0-3 per hpf (0-3)
[2020-04-01] MEDS ORDERED: MethylPREDNISolone 40 MG/ML VIAL IVP SCH (09:00)
[2020-04-01] MEDS: Aspirin Enteric Coated 81 MG Tablet PO SCH (09:12)
[2020-04-01] MEDS: cefTRIAXone 1,000 MG in Water for inj. (sterile) 10 ML IVP SCH (09:15)
[2020-04-01] MEDS: Acetylcysteine 10% 2 ML INHSOL IH SCH ×4 (10:12→23:07)
[2020-04-01] MEDS: Azithromycin 500 MG in 0.9 % Sodium Chloride 250 ML IVPB SCH (18:30)
[2020-04-01] MEDS ORDERED: methylPREDNISolone 125 MG/2 ML VIAL IVP ONE (19:44)
[2020-04-01] MEDS: tiZANidine 4 MG TABLET PO PRN (19:56)
[2020-04-01] MEDS: Thiamine (B-1) 100 MG, Folic Acid 1 MG, MVI, adult with vitamin K 10 ML in 0.9 % Sodi... IVPB SCH (19:57)
[2020-04-01] MEDS: Levalbuterol Neb 1.25 MG/3 ML IH SCH ×2 (19:59→23:07)
[2020-04-02 01:27] LABS: Basophils % 0.1 %; Hematocrit 31.3 % (37.5-50.1); Immature Granulocytes % 0.6 % (0-4); Lymphocytes # 0.4 K/mcL (0.6-4.6); Lymphocytes % 4.4 %; Mean Corpuscular HGB Conc 30.4 g/dL (31.6-35.5); Mean Corpuscular Hemoglobin 24.4 pg (28.0-33.3); Mean Corpuscular Volume 80.5 fL (83.0-100.0); Mean Platelet Volume 11.9 fL (9.4-12.4); Monocytes # 0.1 K/mcL (0.0-1.3); Monocytes % 1.2 %; Neutrophils # 7.5 K/mcL (1.6-8.9); Platelet Count 265 K/mcL (140-400); Red Blood Count 3.89 M/mcL (4.19-5.50); Red Cell Distribution Width 17.3 % (11.5-14.5); Segmented Neutrophils % 93.7 %
[2020-04-02 01:31] LABS: Hemoglobin 9.5 g/dL (12.9-16.9)
[2020-04-02 01:48] LABS: BUN/Creatinine Ratio 38 (6-26); Blood Urea Nitrogen 38 mg/dL (6-20); Carbon Dioxide 24 mEq/L (23-29); Chloride 106 mEq/L (98-107); Glucose 196 mg/dL (70-105); Osmolality,Calculated 302 (280-300); Potassium 4.5 mEq/L (3.5-5.1); Sodium 139 mEq/L (136-145); eGFR For African Americans > 60 (> 60); eGFR For Non-African Americans > 60 (> 60)
[2020-04-02] MEDS: Levalbuterol Neb 1.25 MG/3 ML IH SCH (03:50)
[2020-04-02] MEDS: Acetylcysteine 10% 2 ML INHSOL IH SCH (03:50)
[2020-04-02] MEDS: *HR* Heparin 5,000 UNIT/ML VIAL SQ SCH ×2 (06:03→16:54)
[2020-04-02] MEDS: Dexmedetomidine HCl 400 MCG/100 ML MLS IVC SCH ×2 (06:03→13:11)
[2020-04-02] MEDS ORDERED: Naloxone 0.4 MG/ML INJ IVP PRN (07:02)
[2020-04-02] MEDS ORDERED: Ondansetron 4 MG/2 ML VIAL IVP PRN (07:02)
[2020-04-02] MEDS ORDERED: predniSONE 20 MG TABLET PO SCH (09:00)
[2020-04-02] MEDS ORDERED: cefTRIAXone 1,000 MG in Water for inj. (sterile) 10 ML IVP SCH (09:00)
[2020-04-02] MEDS: Aspirin Enteric Coated 81 MG Tablet PO SCH (09:26)
[2020-04-02] MEDS: predniSONE 20 MG TABLET PO SCH (12:17)
[2020-04-02] MEDS: Levalbuterol Neb 0.63 MG/3 ML IH SCH ×3 (12:30→21:56)
[2020-04-02] MEDS ORDERED: Famotidine 20 MG/2 ML VIAL IVP ONE (14:51)
[2020-04-02] MEDS: *HR* LORazepam 2 MG/ML VIAL IVP PRN (14:56)
[2020-04-02] MEDS: levETIRAcetam 250 MG TABLET PO SCH (16:53)
[2020-04-02] MEDS ORDERED: Azithromycin 500 MG in 0.9 % Sodium Chloride 250 ML IVPB SCH (17:00)
[2020-04-02] MEDS ORDERED: Thiamine (B-1) 100 MG, Folic Acid 1 MG, MVI, adult with vitamin K 10 ML in 0.9 % Sodi... IVPB SCH (18:00)
[2020-04-03] MEDS: Dexmedetomidine HCl 400 MCG/100 ML MLS IVC SCH (02:18)
[2020-04-03] MEDS: Levalbuterol Neb 0.63 MG/3 ML IH SCH (03:38)
[2020-04-03] MEDS: tiZANidine 4 MG TABLET PO PRN (04:34)
[2020-04-03 05:47] LABS: Basophils % 0.1 %; Eosinophils % 0.1 %; Hematocrit 32.2 % (37.5-50.1); Hemoglobin 9.9 g/dL (12.9-16.9); Immature Granulocytes % 0.5 % (0-4); Lymphocytes # 1.7 K/mcL (0.6-4.6); Lymphocytes % 13.7 %; Mean Corpuscular HGB Conc 30.7 g/dL (31.6-35.5); Mean Corpuscular Hemoglobin 24.9 pg (28.0-33.3); Mean Corpuscular Volume 81.1 fL (83.0-100.0); Mean Platelet Volume 11.7 fL (9.4-12.4); Monocytes # 0.8 K/mcL (0.0-1.3); Monocytes % 6.3 %; Neutrophils # 10.1 K/mcL (1.6-8.9); Platelet Count 254 K/mcL (140-400); Red Blood Count 3.97 M/mcL (4.19-5.50); Segmented Neutrophils % 79.3 %
[2020-04-03 05:53] LABS: White Blood Count 12.7 K/mcL (4.3-11.1)
[2020-04-03 06:06] LABS: BUN/Creatinine Ratio 40 (6-26); Blood Urea Nitrogen 31 mg/dL (6-20); Calcium 8.3 mg/dL (8.6-10.3); Carbon Dioxide 22 mEq/L (23-29); Chloride 107 mEq/L (98-107); Glucose 100 mg/dL (70-105); Osmolality,Calculated 287 (280-300); Potassium 4.2 mEq/L (3.5-5.1); Sodium 135 mEq/L (136-145); eGFR For African Americans > 60 (> 60); eGFR For Non-African Americans > 60 (> 60)
[2020-04-03] MEDS: *HR* Heparin 5,000 UNIT/ML VIAL SQ SCH ×2 (06:38→17:27)
[2020-04-03] MEDS: levETIRAcetam 250 MG TABLET PO SCH ×2 (06:39→17:27)
[2020-04-03] MEDS: *HR* LORazepam 2 MG/ML VIAL IVP PRN ×6 (07:07→23:13)
[2020-04-03] MEDS: Aspirin Enteric Coated 81 MG Tablet PO SCH (08:08)
[2020-04-03] MEDS: predniSONE 20 MG TABLET PO SCH (08:09)
[2020-04-03] MEDS: Ipratropium/Albuterol Neb 3 ML IH SCH ×3 (10:58→22:08)
[2020-04-03] MEDS: Thiamine (B-1) 100 MG TABLET PO SCH (14:57)
[2020-04-03] MEDS: Folic Acid 1 MG TABLET PO SCH (14:58)
[2020-04-04] MEDS: Ipratropium/Albuterol Neb 3 ML IH SCH ×4 (03:22→21:23)
[2020-04-04] MEDS: *HR* LORazepam 2 MG/ML VIAL IVP PRN ×3 (04:15→17:33)
[2020-04-04 05:28] LABS: Hematocrit 32.8 % (37.5-50.1); Hemoglobin 10.3 g/dL (12.9-16.9); Mean Corpuscular HGB Conc 31.4 g/dL (31.6-35.5); Mean Corpuscular Hemoglobin 24.9 pg (28.0-33.3); Mean Corpuscular Volume 79.4 fL (83.0-100.0); Mean Platelet Volume 11.6 fL (9.4-12.4); Platelet Count 344 K/mcL (140-400); Red Blood Count 4.13 M/mcL (4.19-5.50); Red Cell Distribution Width 18.1 % (11.5-14.5); White Blood Count 12.3 K/mcL (4.3-11.1)
[2020-04-04 05:47] LABS: BUN/Creatinine Ratio 30 (6-26); Blood Urea Nitrogen 26 mg/dL (6-20); Calcium 8.5 mg/dL (8.6-10.3); Carbon Dioxide 23 mEq/L (23-29); Chloride 108 mEq/L (98-107); Glucose 96 mg/dL (70-105); Osmolality,Calculated 287 (280-300); Potassium 4.2 mEq/L (3.5-5.1); Sodium 136 mEq/L (136-145); eGFR For African Americans > 60 (> 60); eGFR For Non-African Americans > 60 (> 60)
[2020-04-04] MEDS: *HR* Heparin 5,000 UNIT/ML VIAL SQ SCH ×2 (06:09→17:25)
[2020-04-04] MEDS: levETIRAcetam 250 MG TABLET PO SCH ×2 (06:09→17:25)
[2020-04-04] MEDS: Folic Acid 1 MG TABLET PO SCH (07:23)
[2020-04-04] MEDS: Aspirin Enteric Coated 81 MG Tablet PO SCH (07:23)
[2020-04-04] MEDS: Thiamine (B-1) 100 MG TABLET PO SCH (07:23)
[2020-04-04] MEDS: predniSONE 20 MG TABLET PO SCH (07:23)
[2020-04-05] MEDS: Dexmedetomidine HCl 400 MCG/100 ML MLS IVC SCH
[2020-04-05] MEDS: *HR* LORazepam 2 MG/ML VIAL IVP PRN ×4 (02:31→15:14)
[2020-04-05] MEDS: Ipratropium/Albuterol Neb 3 ML IH SCH ×4 (03:49→21:13)
[2020-04-05] MEDS: levETIRAcetam 250 MG TABLET PO SCH ×2 (06:53→17:23)
[2020-04-05] MEDS: *HR* Heparin 5,000 UNIT/ML VIAL SQ SCH ×2 (06:55→17:23)
[2020-04-05] MEDS: Aspirin Enteric Coated 81 MG Tablet PO SCH (08:48)
[2020-04-05] MEDS: Folic Acid 1 MG TABLET PO SCH (08:48)
[2020-04-05] MEDS: predniSONE 20 MG TABLET PO SCH (08:48)
[2020-04-05] MEDS: Thiamine (B-1) 100 MG TABLET PO SCH (08:48)
[2020-04-05 09:39] LABS: ABG Base Excess 3 mEq/L (-2 to 3); ABG HCO3 26 mEq/L (21-27); ABG Oxygen Saturation 96 % (95-98); ABG PCO2 34 mmHg (35-45); ABG PO2 71 mmHg (85-104); ABG TCO2 27 mEq/L (20-26)
[2020-04-05] MEDS ORDERED: Furosemide 40 MG/4 ML VIAL IVP ONE (17:11)
[2020-04-05] MEDS: tiZANidine 4 MG TABLET PO PRN (17:23)
[2020-04-05] MEDS ORDERED: Haloperidol Lactate 5 MG/ML VIAL IVP ONE (18:20)
[2020-04-05] MEDS ORDERED: *HR* LORazepam 2 MG/ML VIAL IVP ONE (20:32)
[2020-04-05 20:42] LABS: VBG HCO3 27 mEq/L (21-27); VBG PCO2 43 mmHg (41-51); VBG PH 7.41 pH Units (7.32-7.42); VBG PO2 67 mmHg (25-50)
[2020-04-06 01:43] LABS: Hematocrit 38.2 % (37.5-50.1); Hemoglobin 11.8 g/dL (12.9-16.9); Mean Corpuscular HGB Conc 30.9 g/dL (31.6-35.5); Mean Corpuscular Hemoglobin 24.6 pg (28.0-33.3); Mean Corpuscular Volume 79.6 fL (83.0-100.0); Mean Platelet Volume 11.1 fL (9.4-12.4); Platelet Count 334 K/mcL (140-400); Red Cell Distribution Width 18.1 % (11.5-14.5); White Blood Count 11.1 K/mcL (4.3-11.1)
[2020-04-06 02:01] LABS: BUN/Creatinine Ratio 28 (6-26); Blood Urea Nitrogen 26 mg/dL (6-20); Calcium 8.5 mg/dL (8.6-10.3); Carbon Dioxide 29 mEq/L (23-29); Chloride 104 mEq/L (98-107); Glucose 90 mg/dL (70-105); Osmolality,Calculated 296 (280-300); Potassium 3.5 mEq/L (3.5-5.1); Sodium 141 mEq/L (136-145); eGFR For African Americans > 60 (> 60); eGFR For Non-African Americans > 60 (> 60)
[2020-04-06] MEDS: Ipratropium/Albuterol Neb 3 ML IH SCH ×4 (04:05→21:37)
[2020-04-06] MEDS: *HR* Heparin 5,000 UNIT/ML VIAL SQ SCH ×2 (06:10→17:05)
[2020-04-06] MEDS: levETIRAcetam 250 MG TABLET PO SCH ×2 (06:10→17:08)
[2020-04-06] MEDS: Thiamine (B-1) 100 MG TABLET PO SCH (09:00)
[2020-04-06] MEDS: predniSONE 20 MG TABLET PO SCH (09:00)
[2020-04-06] MEDS: Aspirin Enteric Coated 81 MG Tablet PO SCH (09:00)
[2020-04-06] MEDS: Folic Acid 1 MG TABLET PO SCH (09:00)
[2020-04-06] MEDS: *HR* LORazepam 2 MG/ML VIAL IVP PRN ×4 (09:15→20:25)
[2020-04-07] MEDS: Mirtazapine 15 MG TABLET PO SCH ×2 (01:59→20:01)
[2020-04-07] MEDS: Ipratropium/Albuterol Neb 3 ML IH SCH ×4 (04:00→20:06)
[2020-04-07] MEDS: levETIRAcetam 250 MG TABLET PO SCH ×2 (06:03→16:59)
[2020-04-07] MEDS: *HR* Heparin 5,000 UNIT/ML VIAL SQ SCH ×2 (06:03→17:00)
[2020-04-07] MEDS: Acetaminophen 325 MG TABLET PO PRN ×2 (06:07→16:59)
[2020-04-07] MEDS: Aspirin Enteric Coated 81 MG Tablet PO SCH (09:42)
[2020-04-07] MEDS: Thiamine (B-1) 100 MG TABLET PO SCH (09:42)
[2020-04-07] MEDS: predniSONE 20 MG TABLET PO SCH (09:42)
[2020-04-07] MEDS: Folic Acid 1 MG TABLET PO SCH (09:42)
[2020-04-07] MEDS: *HR* LORazepam 2 MG/ML VIAL IVP PRN (20:29)
[2020-04-08] MEDS: Acetaminophen 325 MG TABLET PO PRN ×2 (01:04→07:39)
[2020-04-08] MEDS: Ipratropium/Albuterol Neb 3 ML IH SCH ×2 (04:00→09:29)
[2020-04-08] MEDS: levETIRAcetam 250 MG TABLET PO SCH (06:37)
[2020-04-08] MEDS: *HR* Heparin 5,000 UNIT/ML VIAL SQ SCH (06:38)
[2020-04-08] MEDS: Aspirin Enteric Coated 81 MG Tablet PO SCH (07:40)
[2020-04-08] MEDS: Folic Acid 1 MG TABLET PO SCH (07:40)
[2020-04-08] MEDS: Thiamine (B-1) 100 MG TABLET PO SCH (07:40)
[2020-04-08] MEDS: predniSONE 20 MG TABLET PO SCH (07:40)
[2020-04-08] MEDS: tiZANidine 4 MG TABLET PO PRN (07:44)
[2020-04-08 11:36] VITALS: BP 137/70
== END 2020-04-08 12:53 | disposition home or self-care (01) | DRG 194 ==
LOC: 2NENU 11:19 → EMEROOARM 11:19 → SUATTDRO 15:29 → 2NENU 17:42 → 3BNU 03-28 21:30 → SUATTDRO 03-29 13:59 → ICNU 03-29 21:05 → 3NENU 03-31 20:25 → 2ANU 04-04 10:47
PROVIDERS: ADMIT Family Medicine; ATTEND Internal Medicine